=== PATIENT | male | born 1975 | race Caucasian/White ===

== ENCOUNTER 2017-03-06 04:49 | Emergency (ER) | payer OTHER ==
[~2017-03-06] VITALS: Ht 177.8 cm; Wt 102.3 kg
[2017-03-06 04:50] VITALS: BP 141/74
[2017-03-06] MEDS ORDERED: POTA99TA PO (05:11)
[2017-03-06] MEDS ORDERED: MAGN1TAB25 PO (05:11)
[2017-03-06] MEDS ORDERED: FISH100049 PO (05:11)
[2017-03-06] MEDS ORDERED: ONDANSETRON 4 MG ORAL DISINTEGRATING TAB (S0181) PO ONE (08:30)
[2017-03-06] MEDS ORDERED: ONDA8TAB8 PO (09:36)
== END 2017-03-06 09:44 | disposition home or self-care (01) ==
LOC: M ED 04:49
DX: K52.9 Noninfective gastroenteritis and colitis, unspecified (principal); S16.1XXA Strain of muscle, fascia and tendon at neck level, initial encounter; Z72.0 Tobacco use; X58.XXXA Exposure to other specified factors, initial encounter; Y92.89 Other specified places as the place of occurrence of the external cause; Y93.89 Activity, other specified; Y99.9 Unspecified external cause status

== ENCOUNTER 2018-12-09 10:43 | Emergency (ER) | payer OTHER ==
[~2018-12-09] VITALS: Ht 177.8 cm; Wt 102.3 kg
[2018-12-09 10:43] VITALS: BP 133/85
[~2018-12-09 10:43] MED LIST: FISH100049 PO; MAGN1TAB26 PO; ONDA8TAB8 PO; POTA99TA PO
[2018-12-09] MEDS ORDERED: methylPREDNISolone INJ 125 MG/2 ML VIAL (J2930) IM ONE (11:30)
[2018-12-09] MEDS ORDERED: PRED20TA PO (11:36)
== END 2018-12-09 11:43 | disposition home or self-care (01) ==
LOC: M ED 10:43
DX: L56.2 Photocontact dermatitis [berloque dermatitis] (principal); I10 Essential (primary) hypertension; F17.210 Nicotine dependence, cigarettes, uncomplicated
CPT/HCPCS: 96372; 99283; J2930

== ENCOUNTER → 2020-11-20 | Outpatient (CLI) | payer OTHER ==
[~2020-11-20] MED LIST changes: +PRED20TA PO
--- NOTE | 2020-11-20 09:40 | REP ---
INDICATION: STRAIN. COMPARISON: None. TECHNIQUE: AP and frog-leg lateral views of the right hip were obtained. FINDINGS: The hip joint is unremarkable. There is no evidence of femoral head dislocation or subluxation. There is no evidence of fracture of the proximal femur. There is a small avulsion fracture of the anterior inferior iliac spine (AIIS). IMPRESSION: 1. Normal right hip. 2. Evidence of remote injury to the attachment of the rectus femoris muscle at the AIIS. <Electronically signed by Jose Francisco Andujar > 11/20/20 [id number]
--- NOTE | 2020-11-20 09:46 | REP ---
INDICATION: STRAIN. COMPARISON: None. TECHNIQUE: AP view of the pelvis was obtained. FINDINGS: The hip joints are normal. The femoral heads are located without evidence of subluxation or dislocation. There are no fractures identified. The SI joints are normal. There is an avulsion fracture of the right anterior inferior iliac spine (AIIS). There are no soft tissue abnormalities. IMPRESSION: 1. Normal hips and SI joints. 2. Evidence of remote injury to the proximal attachment of the right rectus femoris muscle at the right AIIS. <Electronically signed by Jose Francisco Andujar > 11/20/20 [id number]
== END ==
LOC: M WUC 09:13
PROVIDERS: ATTEND Physician Assistant
DX: S76.011A Strain of muscle, fascia and tendon of right hip, initial encounter (principal); X58.XXXA Exposure to other specified factors, initial encounter; Y92.9 Unspecified place or not applicable; Y99.9 Unspecified external cause status; Y93.9 Activity, unspecified

== ENCOUNTER 2021-11-05 15:03 | Emergency (ER) | payer OTHER ==
[~2021-11-05] VITALS: Ht 177.8 cm; Wt 108.5 kg
[2021-11-05 15:03] VITALS: BP 120/74
== END 2021-11-05 20:31 | disposition home or self-care (01) ==
LOC: M ED 15:03
DX: F41.0 Panic disorder [episodic paroxysmal anxiety] (principal); Z79.899 Other long term (current) drug therapy

== ENCOUNTER 2022-08-05 15:19 | Emergency (ER) | payer OTHER ==
[~2022-08-05] VITALS: Ht 177.8 cm; Wt 106.4 kg
[2022-08-05] MEDS ORDERED: HYDR-4570 PO (15:29)
[2022-08-05] MEDS ORDERED: GABA-282 (15:29)
[2022-08-05] MEDS ORDERED: VENL25TA28 PO (15:29)
[2022-08-05] MEDS ORDERED: IBUP-1022 PO (17:54)
[2022-08-05] MEDS ORDERED: IBUPROFEN 600MG TAB PO ONE (17:55)
[2022-08-05 18:01] VITALS: BP 133/84
== END 2022-08-05 18:05 | disposition home or self-care (01) ==
LOC: M ED 15:19
DX: S63.91XA Sprain of unspecified part of right wrist and hand, initial encounter (principal); Y93.89 Activity, other specified; Y99.0 Civilian activity done for income or pay

== ENCOUNTER → 2022-09-13 | Outpatient (CLI) | payer OTHER ==
[~2022-09-13] MED LIST changes: +GABA-282; +HYDR-4570 PO; +IBUP-1022 PO; +VENL25TA28 PO
[2022-09-13 14:41] LABS: HEMOGLOBIN A1c 5.8 % (4.0-6.0)
[2022-09-13 14:43] LABS: BASO # 0.1 10^3/uL (0.0-0.2); BASO % 0.9 % (0.0-1.0); EOS # 0.2 10^3/uL (0.0-0.5); EOS % 2.3 % (0.0-3.0); HEMATOCRIT 29.3 % (42.0-52.0); HEMOGLOBIN 8.9 g/dl (13.5-17.5); LYMPH # 1.8 10^3/uL (1.5-5.0); LYMPH % 21.9 % (24.0-44.0); MEAN CORPUSCULAR HEMOGLOBIN 23.8 pg (27.0-33.0); MEAN CORPUSCULAR HGB CONC 30.4 g/dl (32.0-36.5); MEAN CORPUSCULAR VOLUME 78.3 fl (80.0-96.0); MONO # 0.8 10^3/uL (0.0-0.8); MONO % 10.1 % (2.0-8.0); NEUTROPHILS # 5.3 10^3/uL (1.5-8.5); NEUTROPHILS % 64.6 % (36.0-66.0); PLATELET COUNT, AUTOMATED 399 10^3/uL (150-450); RED BLOOD COUNT 3.74 10^6/uL (4.30-6.10); WHITE BLOOD COUNT 8.1 10^3/uL (4.0-10.0)
[2022-09-13 14:55] LABS: THYROID STIMULATING HORMONE 2.596 uIU/ML (0.55-4.78)
[2022-09-13 14:57] LABS: ALBUMIN 3.4 G/DL (3.2-5.2); ALKALINE PHOSPHATASE 80 U/L (46-116); ALT/SGPT 22 U/L (7.0-40); AST/SGOT 22 U/L (<34); BILIRUBIN,TOTAL 0.3 MG/DL (0.3-1.2); BLOOD UREA NITROGEN 17 MG/DL (9-23); CALCIUM LEVEL 8.4 MG/DL (8.5-10.1); CARBON DIOXIDE LEVEL 27 MMOL/L (20-31); CHLORIDE LEVEL 105 MMOL/L (98-107); CHOLESTEROL LEVEL 175 MG/DL (<200); CHOLESTEROL RISK RATIO 5.62 (<5); CREATININE FOR GFR 1.19 MG/DL (0.70-1.30); GLOMERULAR FILTRATION RATE > 60.0 (>60); GLUCOSE, FASTING 88 MG/DL (60-100); HDL CHOLESTEROL 31.1 MG/DL (>40); LDL CHOLESTEROL 121.9 MG/DL (<100); NON-HDL-C 143.9 MG/DL; POTASSIUM SERUM 4.5 MMOL/L (3.5-5.1); SODIUM LEVEL 141 MMOL/L (136-145); TOTAL PROTEIN 6.2 G/DL (5.7-8.2); TRIGLYCERIDES LEVEL 110 MG/DL (<150)
== END ==
LOC: M PLALAB 09:41
PROVIDERS: ATTEND Nurse Practitioner Family
DX: R53.83 Other fatigue (principal); Z13.220 Encounter for screening for lipoid disorders; Z13.1 Encounter for screening for diabetes mellitus; K64.9 Unspecified hemorrhoids; K59.09 Other constipation; F41.9 Anxiety disorder, unspecified; Z76.89 Persons encountering health services in other specified circumstances
CPT/HCPCS: 36415; 80053; 80061; 83036; 84439; 84443; 85025; G0463

== ENCOUNTER → 2022-09-15 | Outpatient (REF) | payer OTHER | LOC: M LAB REF 09:52 | PROVIDERS: ATTEND Surgery | DX: R19.7 Diarrhea, unspecified (principal) ==

== ENCOUNTER → 2022-09-28 | Outpatient (CLI) | payer OTHER ==
[2022-09-28 10:33] LABS: BASO # 0.1 10^3/uL (0.0-0.2); BASO % 1.1 % (0.0-1.0); EOS # 0.2 10^3/uL (0.0-0.5); EOS % 1.9 % (0.0-3.0); HEMATOCRIT 29.2 % (42.0-52.0); HEMOGLOBIN 8.9 g/dl (13.5-17.5); LYMPH # 1.6 10^3/uL (1.5-5.0); LYMPH % 20.9 % (24.0-44.0); MEAN CORPUSCULAR HEMOGLOBIN 23.8 pg (27.0-33.0); MEAN CORPUSCULAR HGB CONC 30.5 g/dl (32.0-36.5); MEAN CORPUSCULAR VOLUME 78.1 fl (80.0-96.0); MONO # 0.8 10^3/uL (0.0-0.8); MONO % 10.1 % (2.0-8.0); NEUTROPHILS # 5.1 10^3/uL (1.5-8.5); NEUTROPHILS % 65.5 % (36.0-66.0); PLATELET COUNT, AUTOMATED 449 10^3/uL (150-450); RED BLOOD COUNT 3.74 10^6/uL (4.30-6.10); WHITE BLOOD COUNT 7.8 10^3/uL (4.0-10.0)
[2022-09-28 11:04] LABS: PERCENT SATURATION 5.9 % (19.7-50.0)
[2022-09-28 11:08] LABS: FERRITIN 41.1 NG/ML (10.5-307.3)
== END ==
LOC: M PLALAB 07:07
PROVIDERS: ATTEND Nurse Practitioner Family
DX: D64.9 Anemia, unspecified (principal)

== ENCOUNTER → 2022-10-04 | Outpatient (CLI) | payer OTHER ==
[~2022-10-04] MED LIST changes: +GASTROGRAFIN SOLUTION 30ML As Ordered ONE; +ISOVUE-370 76% 100ML VIAL As Ordered ONE
== END ==
LOC: M RAD 13:10
PROVIDERS: ATTEND Surgery
DX: R19.7 Diarrhea, unspecified (principal); R10.84 Generalized abdominal pain; R19.4 Change in bowel habit; K57.90 Diverticulosis of intestine, part unspecified, without perforation or abscess without bleeding; R93.3 Abnormal findings on diagnostic imaging of other parts of digestive tract
CPT/HCPCS: 74178; Q9963; Q9967

== ENCOUNTER → 2022-10-11 | Outpatient (CLI) | payer OTHER ==
[~2022-10-11] MED LIST changes: -GABA-282; +GABA-282 PO; -GASTROGRAFIN SOLUTION 30ML As Ordered ONE; +IRON1TAB2 PO; -ISOVUE-370 76% 100ML VIAL As Ordered ONE; +VENL37.598 PO; +VITA100T14 PO
[2022-10-11 16:52] LABS: CA19-9 TUMOR MARKER,CARBOHYDRA 1043.7 U/ML (<35.0)
== END ==
LOC: M LAB 13:56
PROVIDERS: ATTEND Surgery
DX: C18.9 Malignant neoplasm of colon, unspecified (principal)

== ENCOUNTER 2022-10-13 12:42 | Day surgery (SDC) | payer OTHER ==
[~2022-10-13] VITALS: Ht 177.8 cm; Wt 103.5 kg
[~2022-10-13 12:42] MED LIST changes: +NS 1,000 ML IV ONE
[2022-10-13 13:24] VITALS: TEMP 97.6
[2022-10-13] MEDS ORDERED: propofoL 200 MG/20 ML VIAL As Ordered ONE ×2 (14:31→14:40)
[2022-10-13] MEDS ORDERED: fentaNYL 100 MCG/2 ML INJECTION As Ordered ONE (14:32)
[2022-10-13 15:20] VITALS: BP 136/78; O2SAT 99
== END 2022-10-13 15:27 | disposition home or self-care (01) ==
LOC: M OPP 12:42
PROVIDERS: ATTEND Surgery
DX: K62.5 Hemorrhage of anus and rectum (principal); C20 Malignant neoplasm of rectum; K56.690 Other partial intestinal obstruction; R93.3 Abnormal findings on diagnostic imaging of other parts of digestive tract; R10.84 Generalized abdominal pain; Z87.891 Personal history of nicotine dependence; Z79.1 Long term (current) use of non-steroidal anti-inflammatories (NSAID); Z79.891 Long term (current) use of opiate analgesic; Z79.899 Other long term (current) drug therapy
CPT/HCPCS: 43235; 45380; 88305; J3010

== ENCOUNTER → 2022-11-09 | Outpatient (CLI) | payer OTHER ==
[~2022-11-09] MED LIST changes: +ACET650T15 PO; +ISOVUE-370 76% 100ML VIAL ONE; +MULT1TAB16 PO; -NS 1,000 ML IV ONE; +OXYC1CAP PO; +SENN-186 PO; +TRAM50TA2
== END ==
LOC: M PLAIMG 08:34
PROVIDERS: ATTEND Internal Medicine Medical Oncology
DX: C78.01 Secondary malignant neoplasm of right lung (principal); C78.02 Secondary malignant neoplasm of left lung; K76.89 Other specified diseases of liver
CPT/HCPCS: 71260; Q9967

== ENCOUNTER → 2022-11-15 | Outpatient (CLI) | payer OTHER ==
[~2022-11-15] MED LIST changes: -ISOVUE-370 76% 100ML VIAL ONE; +LIDO30CR18 TOP; +OXYC-517 PO
== END ==
LOC: M PAL 07:58
PROVIDERS: ATTEND Nurse Practitioner Family
DX: G89.3 Neoplasm related pain (acute) (chronic) (principal); Z51.5 Encounter for palliative care; Z79.891 Long term (current) use of opiate analgesic; Z79.1 Long term (current) use of non-steroidal anti-inflammatories (NSAID); C18.9 Malignant neoplasm of colon, unspecified; C78.7 Secondary malignant neoplasm of liver and intrahepatic bile duct; C78.00 Secondary malignant neoplasm of unspecified lung; C77.1 Secondary and unspecified malignant neoplasm of intrathoracic lymph nodes; Z87.891 Personal history of nicotine dependence

== ENCOUNTER → 2022-11-22 | Outpatient (CLI) | payer OTHER ==
[~2022-11-22] VITALS: Ht 177.8 cm; Wt 102.9 kg
[~2022-11-22] MED LIST changes: +COLA100C5 PO; +MIRA3350 PO
[2022-11-22 10:14] VITALS: BP 97/65; TEMP 97; O2SAT 98
== END ==
LOC: M PAL 09:54
PROVIDERS: ATTEND Nurse Practitioner Adult Health
DX: C18.9 Malignant neoplasm of colon, unspecified (principal); C78.7 Secondary malignant neoplasm of liver and intrahepatic bile duct; C78.00 Secondary malignant neoplasm of unspecified lung; C77.1 Secondary and unspecified malignant neoplasm of intrathoracic lymph nodes; Z79.891 Long term (current) use of opiate analgesic; Z51.5 Encounter for palliative care; G89.3 Neoplasm related pain (acute) (chronic); Z79.1 Long term (current) use of non-steroidal anti-inflammatories (NSAID); G47.01 Insomnia due to medical condition; Z87.891 Personal history of nicotine dependence; F41.9 Anxiety disorder, unspecified; Z79.899 Other long term (current) drug therapy

== ENCOUNTER → 2022-12-08 | Outpatient (CLI) | payer OTHER | LOC: M ONCR 09:40 | PROVIDERS: ATTEND General Practice | DX: C20 Malignant neoplasm of rectum (principal); R91.8 Other nonspecific abnormal finding of lung field; R16.0 Hepatomegaly, not elsewhere classified; Z71.2 Person consulting for explanation of examination or test findings; Z79.891 Long term (current) use of opiate analgesic; Z79.899 Other long term (current) drug therapy; Z80.0 Family history of malignant neoplasm of digestive organs; Z80.1 Family history of malignant neoplasm of trachea, bronchus and lung; Z87.891 Personal history of nicotine dependence ==

== ENCOUNTER 2022-12-12 09:55 | Emergency (ER) | payer OTHER ==
[~2022-12-12] VITALS: Ht 177.8 cm; Wt 105.3 kg
[2022-12-12] MEDS ORDERED: NS 500 ML IV ONE ×2 (10:05→13:40)
[2022-12-12] MEDS ORDERED: ISOVUE-370 76% 100ML VIAL As Ordered ONE (10:58)
[2022-12-12] MEDS ORDERED: ONDANSETRON 4MG 2ML VIAL IV ONE (11:05)
[2022-12-12 11:14] LABS: BASO # 0.1 10^3/uL (0.0-0.2); BASO % 0.8 % (0.0-1.0); EOS # 0.1 10^3/uL (0.0-0.5); EOS % 0.5 % (0.0-3.0); HEMOGLOBIN 7.7 g/dl (13.5-17.5); LYMPH # 1.5 10^3/uL (1.5-5.0); LYMPH % 12.1 % (24.0-44.0); MEAN CORPUSCULAR HEMOGLOBIN 22.2 pg (27.0-33.0); MEAN CORPUSCULAR HGB CONC 30.8 g/dl (32.0-36.5); MONO # 1.1 10^3/uL (0.0-0.8); MONO % 9.2 % (2.0-8.0); NEUTROPHILS # 9.5 10^3/uL (1.5-8.5); NEUTROPHILS % 76.7 % (36.0-66.0); PLATELET COUNT, AUTOMATED 446 10^3/uL (150-450); RED BLOOD COUNT 3.47 10^6/uL (4.30-6.10); WHITE BLOOD COUNT 12.4 10^3/uL (4.0-10.0)
[2022-12-12] MEDS: MORPHINE 4 MG/ML 1ML VIAL IV PRN ×2 (11:18→12:13)
[2022-12-12 11:27] LABS: INR 1.16; PROTHROMBIN TIME 14.5 SECONDS (12.5-14.5)
[2022-12-12 11:28] LABS: PARTIAL THROMBOPLASTIN TIME 28.9 SECONDS (24.8-34.2)
[2022-12-12 11:36] LABS: LIPASE 24 U/L (12-53)
[2022-12-12 11:37] LABS: AMYLASE 27 U/L (30-118)
[2022-12-12 11:38] LABS: ALBUMIN 2.8 G/DL (3.2-5.2); ALKALINE PHOSPHATASE 416 U/L (46-116); ALT/SGPT 45 U/L (7.0-40); AST/SGOT 84 U/L (<34); BILIRUBIN,DIRECT 0.3 MG/DL (<0.4); BILIRUBIN,TOTAL 0.8 MG/DL (0.3-1.2); CK-MB VALUE MASS < 1.0 NG/ML (<3.6); CPK CREATINE PHOSPHOKINASE 145 U/L (46-171); MB/CK RELATIVE INDEX 0.68 (< OR =4); TOTAL PROTEIN 6.7 G/DL (5.7-8.2)
[2022-12-12 11:46] LABS: RSV AMPLIFICATION NEGATIVE (NEGATIVE)
[2022-12-12 13:07] VITALS: BP 127/67; TEMP 99.5; TEMP 99.9; O2SAT 23
[2022-12-12 13:23] VITALS: BP 127/69; TEMP 100; O2SAT 96
[2022-12-12] MEDS ORDERED: ACETAMINOPHEN TAB 650MG DOSE (2X325MG) PO ONE (13:25)
[2022-12-12 14:08] VITALS: BP 123/75; TEMP 99.1; O2SAT 95
[2022-12-12 15:14] VITALS: BP 124/69; TEMP 98.7; O2SAT 97
== END 2022-12-12 15:55 | disposition home or self-care (01) ==
LOC: M ED 09:55
DX: R10.11 Right upper quadrant pain (principal); R11.10 Vomiting, unspecified; Z85.038 Personal history of other malignant neoplasm of large intestine; F41.9 Anxiety disorder, unspecified; F32.A Depression, unspecified; Z79.899 Other long term (current) drug therapy
CPT/HCPCS: 36430; 71045; 71275; 74177; 80047; 80076; 81001; 82150; 82550; 82553; 83605; 83690; 84484; 85025; 85610; 85730; 86850; 86900; 86901; 86920; 87040; 87631; 93005; 93041; 96361; 96374; 96375; 96376; 99285; J2405; P9016; Q9967

== ENCOUNTER 2022-12-13 10:13 | Outpatient (RCR) | payer OTHER ==
[2022-12-15] MEDS ORDERED: ONDA-84 PO (08:41)
[2022-12-20] MEDS ORDERED: PROC10TA5 PO (13:10)
== END 2022-12-15 ==
LOC: M ONCR 10:13
PROVIDERS: ATTEND General Practice
DX: Z51.0 Encounter for antineoplastic radiation therapy (principal); C20 Malignant neoplasm of rectum

== ENCOUNTER → 2022-12-27 | Outpatient (CLI) | payer OTHER ==
[~2022-12-27] VITALS: Ht 177.8 cm; Wt 106.4 kg
[~2022-12-27] MED LIST changes: +DEXA4TA PO; +ONDA-84 PO; +OXYC10TA12 PO; +PROC10TA5 PO
[2022-12-27 08:34] VITALS: BP 129/75; O2SAT 97
== END ==
LOC: M PAL 08:18
PROVIDERS: ATTEND Nurse Practitioner Adult Health
DX: C18.9 Malignant neoplasm of colon, unspecified (principal); C78.7 Secondary malignant neoplasm of liver and intrahepatic bile duct; C78.00 Secondary malignant neoplasm of unspecified lung; C77.1 Secondary and unspecified malignant neoplasm of intrathoracic lymph nodes; G89.3 Neoplasm related pain (acute) (chronic); G47.01 Insomnia due to medical condition; F41.9 Anxiety disorder, unspecified; R61 Generalized hyperhidrosis; Z51.5 Encounter for palliative care; Z79.1 Long term (current) use of non-steroidal anti-inflammatories (NSAID); Z79.891 Long term (current) use of opiate analgesic; Z79.899 Other long term (current) drug therapy; Z87.891 Personal history of nicotine dependence; Z92.3 Personal history of irradiation; Z92.21 Personal history of antineoplastic chemotherapy

== ENCOUNTER → 2022-12-30 | Outpatient (CLI) | payer OTHER ==
[~2022-12-30] MED LIST changes: +LIDOCAINE 1% MDV 20ML VIAL As Ordered ONE; +LOMO2.5T PO
[2022-12-30 12:33] VITALS: TEMP 98.6
[2022-12-30 15:10] VITALS: BP 124/80; O2SAT 100
== END ==
LOC: M IRPRO 12:15
PROVIDERS: ATTEND Specialist
DX: K76.89 Other specified diseases of liver (principal); C22.0 Liver cell carcinoma

== ENCOUNTER → 2023-02-07 | Outpatient (CLI) | payer OTHER ==
[~2023-02-07] VITALS: Ht 182.9 cm; Wt 99.5 kg
[~2023-02-07] MED LIST changes: +BLOOMIS XX; +CRAN400C PO; +EQL50TAB2 PO; -LIDOCAINE 1% MDV 20ML VIAL As Ordered ONE; +VITA100T59 PO
[2023-02-07 09:45] VITALS: BP 151/94; O2SAT 97
== END ==
LOC: M PAL 09:13
PROVIDERS: ATTEND Nurse Practitioner Adult Health
DX: C18.9 Malignant neoplasm of colon, unspecified (principal); C78.7 Secondary malignant neoplasm of liver and intrahepatic bile duct; C78.00 Secondary malignant neoplasm of unspecified lung; C77.1 Secondary and unspecified malignant neoplasm of intrathoracic lymph nodes; G89.3 Neoplasm related pain (acute) (chronic); G47.01 Insomnia due to medical condition; F41.9 Anxiety disorder, unspecified; K59.00 Constipation, unspecified; R61 Generalized hyperhidrosis; Z51.5 Encounter for palliative care; Z79.1 Long term (current) use of non-steroidal anti-inflammatories (NSAID); Z79.891 Long term (current) use of opiate analgesic; Z79.899 Other long term (current) drug therapy; Z87.891 Personal history of nicotine dependence; Z92.21 Personal history of antineoplastic chemotherapy; Z92.3 Personal history of irradiation

== ENCOUNTER 2023-03-01 21:09 | Emergency (ER) | payer OTHER ==
[~2023-03-01] VITALS: Ht 177.8 cm; Wt 99.8 kg
[~2023-03-01 21:09] MED LIST changes: +HYDR-3911; +SIME80TA16 PO; +TELM1TAB33
[2023-03-01] MEDS ORDERED: MORPHINE 4 MG/ML 1ML VIAL IV PRN (22:25)
[2023-03-01] MEDS ORDERED: ONDANSETRON 4MG 2ML VIAL IV ONE (22:25)
[2023-03-01 22:42] LABS: BASO % 0.1 % (0.0-1.0); HEMATOCRIT 34.7 % (42.0-52.0); HEMOGLOBIN 11.4 g/dl (13.5-17.5); LYMPH # 0.3 10^3/uL (1.5-5.0); LYMPH % 4.8 % (24.0-44.0); MEAN CORPUSCULAR HEMOGLOBIN 28.8 pg (27.0-33.0); MEAN CORPUSCULAR HGB CONC 32.9 g/dl (32.0-36.5); MEAN CORPUSCULAR VOLUME 87.6 fl (80.0-96.0); MONO # 0.9 10^3/uL (0.0-0.8); MONO % 12.2 % (2.0-8.0); NEUTROPHILS # 5.9 10^3/uL (1.5-8.5); NEUTROPHILS % 82.8 % (36.0-66.0); PLATELET COUNT, AUTOMATED 197 10^3/uL (150-450); RED BLOOD COUNT 3.96 10^6/uL (4.30-6.10); WHITE BLOOD COUNT 7.1 10^3/uL (4.0-10.0)
[2023-03-01 22:57] LABS: INR 1.06; PARTIAL THROMBOPLASTIN TIME 29.5 SECONDS (24.8-34.2); PROTHROMBIN TIME 13.5 SECONDS (12.5-14.5)
[2023-03-01 23:05] LABS: CK-MB VALUE MASS < 1.0 NG/ML (<3.6); LIPASE 48 U/L (12-53)
[2023-03-01 23:07] LABS: ALBUMIN 2.8 G/DL (3.2-5.2); ALKALINE PHOSPHATASE 229 U/L (46-116); ALT/SGPT 28 U/L (7.0-40); AST/SGOT 25 U/L (<34); BILIRUBIN,DIRECT 0.2 MG/DL (<0.4); BILIRUBIN,TOTAL 0.4 MG/DL (0.3-1.2); BLOOD UREA NITROGEN 12 MG/DL (9-23); CALCIUM LEVEL 8.6 MG/DL (8.5-10.1); CARBON DIOXIDE LEVEL 22 MMOL/L (20-31); CHLORIDE LEVEL 108 MMOL/L (98-107); CPK CREATINE PHOSPHOKINASE 46 U/L (46-171); CREATININE FOR GFR 0.62 MG/DL (0.70-1.30); GLOMERULAR FILTRATION RATE > 60.0 (>60); GLUCOSE, FASTING 144 MG/DL (60-100); MB/CK RELATIVE INDEX 2.17 (< OR =4); POTASSIUM SERUM 4.7 MMOL/L (3.5-5.1); SODIUM LEVEL 138 MMOL/L (136-145); TOTAL PROTEIN 6.4 G/DL (5.7-8.2)
[2023-03-01 23:27] LABS: RSV AMPLIFICATION NEGATIVE (NEGATIVE)
[2023-03-02 00:09] LABS: CK-MB VALUE MASS < 1.0 NG/ML (<3.6)
[2023-03-02 00:11] LABS: CPK CREATINE PHOSPHOKINASE 36 U/L (46-171); MB/CK RELATIVE INDEX 2.77 (< OR =4)
[2023-03-02] MEDS ORDERED: ISOVUE-370 76% 100ML VIAL As Ordered ONE (00:25)
[2023-03-02 01:59] VITALS: BP 138/89; TEMP 97.7; O2SAT 95
[2023-03-02 02:20] LABS: HEMATOCRIT 32.4 % (42.0-52.0); HEMOGLOBIN 10.6 g/dl (13.5-17.5); MEAN CORPUSCULAR HEMOGLOBIN 28.7 pg (27.0-33.0); MEAN CORPUSCULAR HGB CONC 32.7 g/dl (32.0-36.5); MEAN CORPUSCULAR VOLUME 87.8 fl (80.0-96.0); PLATELET COUNT, AUTOMATED 143 10^3/uL (150-450); RED BLOOD COUNT 3.69 10^6/uL (4.30-6.10); WHITE BLOOD COUNT 7.2 10^3/uL (4.0-10.0)
[2023-03-02] MEDS ORDERED: MORP15TA2 PO (13:27)
[2023-03-08] MEDS ORDERED: NAPR-849 PO (09:40)
[2023-03-08] MEDS ORDERED: VENL37.598 PO ×2 (10:19→10:49)
== END 2023-03-02 02:55 | disposition home or self-care (01) ==
LOC: M ED 21:09
DX: K92.2 Gastrointestinal hemorrhage, unspecified (principal); C18.9 Malignant neoplasm of colon, unspecified; F41.1 Generalized anxiety disorder; Z79.899 Other long term (current) drug therapy
CPT/HCPCS: 71275; 74177; 85027; 93005; 96365; 96366; 96375; Q9967

== ENCOUNTER → 2023-03-08 | Outpatient (CLI) | payer OTHER ==
[~2023-03-08] VITALS: Ht 177.8 cm; Wt 99.2 kg
[~2023-03-08] MED LIST changes: +METO5TAB2 PO; +MORP15TA2 PO; +NAPR-849 PO
[2023-03-08 09:34] VITALS: BP 140/87; O2SAT 97
== END ==
LOC: M PAL 09:07
PROVIDERS: ATTEND Nurse Practitioner Adult Health
DX: C18.9 Malignant neoplasm of colon, unspecified (principal); C78.7 Secondary malignant neoplasm of liver and intrahepatic bile duct; C78.00 Secondary malignant neoplasm of unspecified lung; C77.1 Secondary and unspecified malignant neoplasm of intrathoracic lymph nodes; G89.3 Neoplasm related pain (acute) (chronic); G47.01 Insomnia due to medical condition; R61 Generalized hyperhidrosis; Z51.5 Encounter for palliative care; Z79.891 Long term (current) use of opiate analgesic; Z79.899 Other long term (current) drug therapy; Z87.891 Personal history of nicotine dependence; Z92.21 Personal history of antineoplastic chemotherapy; Z92.3 Personal history of irradiation

== ENCOUNTER → 2023-03-29 | Outpatient (CLI) | payer OTHER | LOC: M ONCR 08:11 | PROVIDERS: ATTEND General Practice | DX: C20 Malignant neoplasm of rectum (principal); R10.30 Lower abdominal pain, unspecified; R16.0 Hepatomegaly, not elsewhere classified; Z71.2 Person consulting for explanation of examination or test findings; Z79.899 Other long term (current) drug therapy; Z87.891 Personal history of nicotine dependence; Z92.3 Personal history of irradiation ==

== ENCOUNTER → 2023-04-13 | Outpatient (CLI) | payer OTHER ==
[~2023-04-13] VITALS: Ht 177.8 cm; Wt 99.2 kg
[2023-04-13 09:00] VITALS: BP 149/97; O2SAT 100
== END ==
LOC: M PAL 09:08
PROVIDERS: ATTEND Nurse Practitioner Adult Health
DX: C18.9 Malignant neoplasm of colon, unspecified (principal); C78.7 Secondary malignant neoplasm of liver and intrahepatic bile duct; C78.00 Secondary malignant neoplasm of unspecified lung; C77.1 Secondary and unspecified malignant neoplasm of intrathoracic lymph nodes; G89.3 Neoplasm related pain (acute) (chronic); G47.01 Insomnia due to medical condition; Z51.5 Encounter for palliative care; Z79.891 Long term (current) use of opiate analgesic; Z79.899 Other long term (current) drug therapy; Z87.891 Personal history of nicotine dependence; Z92.21 Personal history of antineoplastic chemotherapy; Z92.3 Personal history of irradiation

== ENCOUNTER → 2023-05-23 | Outpatient (CLI) | payer OTHER ==
[~2023-05-23] VITALS: Ht 177.8 cm; Wt 99.7 kg
[~2023-05-23] MED LIST changes: +B-122500 PO; +CVS1CAP2 PO; +HYDR-3363; +HYDR-3363 PO; -HYDR-3911; +HYDR50TA46; +NOXI1TAB PO; +VENL75CA47 PO
[2023-05-23 08:51] VITALS: BP 129/88; O2SAT 98
== END ==
LOC: M PAL 08:18
PROVIDERS: ATTEND Nurse Practitioner Adult Health
DX: C18.9 Malignant neoplasm of colon, unspecified (principal); C78.7 Secondary malignant neoplasm of liver and intrahepatic bile duct; C78.00 Secondary malignant neoplasm of unspecified lung; C77.1 Secondary and unspecified malignant neoplasm of intrathoracic lymph nodes; F41.8 Other specified anxiety disorders; G89.3 Neoplasm related pain (acute) (chronic); G47.01 Insomnia due to medical condition; Z51.5 Encounter for palliative care; Z79.891 Long term (current) use of opiate analgesic; Z79.899 Other long term (current) drug therapy; Z87.891 Personal history of nicotine dependence; Z92.21 Personal history of antineoplastic chemotherapy; Z92.3 Personal history of irradiation

== ENCOUNTER → 2023-06-21 | Outpatient (CLI) | payer OTHER ==
[~2023-06-21] MED LIST changes: +GASTROGRAFIN SOLUTION 30ML As Ordered ONE; -HYDR50TA46; +HYDR50TA46 PO; +ISOVUE-370 76% 100ML VIAL As Ordered ONE
== END ==
LOC: M RAD 06:59
PROVIDERS: ATTEND General Practice
DX: C20 Malignant neoplasm of rectum (principal); N20.0 Calculus of kidney; K76.89 Other specified diseases of liver
CPT/HCPCS: 71260; 74177; Q9963; Q9967

== ENCOUNTER → 2023-06-28 | Outpatient (CLI) | payer OTHER ==
[~2023-06-28] MED LIST changes: -GASTROGRAFIN SOLUTION 30ML As Ordered ONE; -ISOVUE-370 76% 100ML VIAL As Ordered ONE
== END ==
LOC: M ONCR 09:33
PROVIDERS: ATTEND General Practice
DX: C78.7 Secondary malignant neoplasm of liver and intrahepatic bile duct (principal); C20 Malignant neoplasm of rectum; R91.8 Other nonspecific abnormal finding of lung field; Z71.2 Person consulting for explanation of examination or test findings; Z79.899 Other long term (current) drug therapy; Z87.891 Personal history of nicotine dependence; Z91.018 Allergy to other foods; Z92.21 Personal history of antineoplastic chemotherapy; Z92.3 Personal history of irradiation

== ENCOUNTER → 2023-06-28 | Outpatient (CLI) | payer OTHER ==
[~2023-06-28] VITALS: Ht 180.3 cm; Wt 100.0 kg
[2023-06-28 09:15] VITALS: BP 126/64; O2SAT 100
== END ==
LOC: M PAL 08:08
PROVIDERS: ATTEND Nurse Practitioner Adult Health
DX: G89.3 Neoplasm related pain (acute) (chronic) (principal); M25.551 Pain in right hip; C20 Malignant neoplasm of rectum; C78.7 Secondary malignant neoplasm of liver and intrahepatic bile duct; C78.00 Secondary malignant neoplasm of unspecified lung; C77.1 Secondary and unspecified malignant neoplasm of intrathoracic lymph nodes; F41.8 Other specified anxiety disorders; F32.A Depression, unspecified; E73.9 Lactose intolerance, unspecified; R91.8 Other nonspecific abnormal finding of lung field; Z51.5 Encounter for palliative care; Z71.2 Person consulting for explanation of examination or test findings; Z79.891 Long term (current) use of opiate analgesic; Z79.899 Other long term (current) drug therapy; Z87.891 Personal history of nicotine dependence; Z92.21 Personal history of antineoplastic chemotherapy; Z92.3 Personal history of irradiation; Z91.018 Allergy to other foods
CPT/HCPCS: G0463 ×2

== ENCOUNTER → 2023-07-18 | Outpatient (CLI) | payer OTHER ==
[2023-07-18 14:22] LABS: HEMATOCRIT 33.8 % (42.0-52.0); MEAN CORPUSCULAR HEMOGLOBIN 31.3 pg (27.0-33.0); MEAN CORPUSCULAR HGB CONC 32.5 g/dl (32.0-36.5); PLATELET COUNT, AUTOMATED 109 10^3/uL (150-450); RED BLOOD COUNT 3.52 10^6/uL (4.30-6.10); WHITE BLOOD COUNT 2.6 10^3/uL (4.0-10.0)
[2023-07-18 14:26] LABS: THYROID STIMULATING HORMONE 2.764 uIU/ML (0.55-4.78)
[2023-07-18 14:27] LABS: TOTAL 25(OH) VITAMIN D 31.1 NG/ML (20.0-100.0)
[2023-07-18 14:30] LABS: FREE T4 1.32 NG/DL (0.89-1.76)
[2023-07-18 14:34] LABS: ALBUMIN 2.8 G/DL (3.2-5.2); ALKALINE PHOSPHATASE 319 U/L (46-116); ALT/SGPT 46 U/L (7.0-40); AST/SGOT 46 U/L (<34); BILIRUBIN,TOTAL 0.7 MG/DL (0.3-1.2); BLOOD UREA NITROGEN 12 MG/DL (9-23); CALCIUM LEVEL 8.7 MG/DL (8.5-10.1); CARBON DIOXIDE LEVEL 29 MMOL/L (20-31); CHLORIDE LEVEL 106 MMOL/L (98-107); CHOLESTEROL LEVEL 154 MG/DL (<200); CHOLESTEROL RISK RATIO 2.26 (<5); GLOMERULAR FILTRATION RATE > 60.0 (>60); GLUCOSE, FASTING 114 MG/DL (60-100); HEMOGLOBIN A1c 5.1 % (4.0-6.0); LDL CHOLESTEROL 71.8 MG/DL (<100); POTASSIUM SERUM 4.4 MMOL/L (3.5-5.1); SODIUM LEVEL 142 MMOL/L (136-145); TOTAL PROTEIN 5.9 G/DL (5.7-8.2); TRIGLYCERIDES LEVEL 71 MG/DL (<150)
[2023-07-18 15:35] LABS: ATYPICAL LYMPH 3 % (0-5); BASOPHILS 2 % (0-1); EOSINOPHILS 5 % (0-3); LYMPHOCYTES 11 % (16-44); MONOCYTES 5 % (0-5); NEUTROPHILS 74 % (28-66)
[2023-07-18 15:36] LABS: ANISOCYTOSIS 1+; OVALOCYTES 1+
[2023-07-18 16:42] LABS: PLATELET ESTIMATE DECREASED (NORMAL)
== END ==
LOC: M PLALAB 09:42
PROVIDERS: ATTEND Nurse Practitioner Family
DX: E78.2 Mixed hyperlipidemia (principal); R73.03 Prediabetes; E55.9 Vitamin D deficiency, unspecified; I10 Essential (primary) hypertension

== ENCOUNTER → 2023-08-08 | Outpatient (CLI) | payer OTHER ==
[~2023-08-08] MED LIST changes: -OXYC1CAP PO; +OXYC1CAP2 PO
== END ==
LOC: M ONCR 10:07
PROVIDERS: ATTEND General Practice
DX: C20 Malignant neoplasm of rectum (principal); C78.7 Secondary malignant neoplasm of liver and intrahepatic bile duct; C78.00 Secondary malignant neoplasm of unspecified lung; Z71.2 Person consulting for explanation of examination or test findings; Z79.899 Other long term (current) drug therapy; Z87.891 Personal history of nicotine dependence; Z91.018 Allergy to other foods; Z91.011 Allergy to milk products; Z92.21 Personal history of antineoplastic chemotherapy; Z92.3 Personal history of irradiation

== ENCOUNTER → 2023-08-09 | Outpatient (CLI) | payer OTHER ==
[~2023-08-09] VITALS: Ht 177.8 cm; Wt 99.1 kg
[2023-08-09 08:45] VITALS: BP 128/81; O2SAT 100
== END ==
LOC: M PAL 08:35
PROVIDERS: ATTEND Nurse Practitioner Adult Health
DX: G89.3 Neoplasm related pain (acute) (chronic) (principal); G56.93 Unspecified mononeuropathy of bilateral upper limbs; C20 Malignant neoplasm of rectum; C78.7 Secondary malignant neoplasm of liver and intrahepatic bile duct; C78.00 Secondary malignant neoplasm of unspecified lung; C77.1 Secondary and unspecified malignant neoplasm of intrathoracic lymph nodes; F41.8 Other specified anxiety disorders; F32.A Depression, unspecified; E73.9 Lactose intolerance, unspecified; R91.8 Other nonspecific abnormal finding of lung field; Z51.5 Encounter for palliative care; Z71.2 Person consulting for explanation of examination or test findings; Z79.891 Long term (current) use of opiate analgesic; Z79.899 Other long term (current) drug therapy; Z87.891 Personal history of nicotine dependence; Z92.21 Personal history of antineoplastic chemotherapy; Z92.3 Personal history of irradiation; Z91.018 Allergy to other foods

== ENCOUNTER 2023-08-17 11:30 | Day surgery (SDC) | payer OTHER ==
[~2023-08-17] VITALS: Ht 177.8 cm; Wt 94.8 kg
[2023-08-17] MEDS ORDERED: LIDOCAINE 2% 100MG/5ML SDV (FOR ANES.) As Ordered ONE (12:03)
[2023-08-17] MEDS ORDERED: propofoL 200 MG/20 ML VIAL As Ordered ONE (12:03)
[2023-08-17] MEDS: NS 1,000 ML IV ONE (12:09)
[2023-08-17] MEDS ORDERED: fentaNYL 100 MCG/2 ML INJECTION As Ordered ONE (12:16)
[2023-08-17 14:19] VITALS: BP 134/90; O2SAT 100
[2023-08-21] MEDS ORDERED: NEUR600T PO (10:45)
== END 2023-08-17 14:19 | disposition home or self-care (01) ==
LOC: M OPP 11:30
PROVIDERS: ATTEND Surgery
DX: C20 Malignant neoplasm of rectum (principal); K52.9 Noninfective gastroenteritis and colitis, unspecified; K62.7 Radiation proctitis; K56.699 Other intestinal obstruction unspecified as to partial versus complete obstruction; R10.2 Pelvic and perineal pain; R10.84 Generalized abdominal pain; K29.70 Gastritis, unspecified, without bleeding; K31.89 Other diseases of stomach and duodenum; Z79.899 Other long term (current) drug therapy; Z92.21 Personal history of antineoplastic chemotherapy; Z92.3 Personal history of irradiation; Z87.891 Personal history of nicotine dependence; Z91.018 Allergy to other foods
CPT/HCPCS: 43235; 45380; 88305; J3010

== ENCOUNTER 2023-09-15 08:38 | Inpatient (IN) | payer OTHER ==
[2023-09-15] VITALS (7 sets, daily range): BP systolic 118–126; BP diastolic 74–79; TEMP 97–97.9; O2SAT 94–98
[~2023-09-15] VITALS: Ht 177.8 cm; Wt 97.5 kg
[~2023-09-15 08:38] MED LIST changes: -CRAN400C PO; +CRANBERRY400 MG PO; +GABA600T4 PO; +NEUR600T PO; +ONDA-284 PO; -ONDA8TAB8 PO; +THERTAB52 PO; +VENL25TA20 PO; -VENL25TA28 PO
[2023-09-15] MEDS ORDERED: MIRA3350 (09:28)
[2023-09-15] MEDS ORDERED: METR-265 PO (09:28)
[2023-09-15] MEDS ORDERED: NEOM500T PO (09:28)
[2023-09-15] MEDS ORDERED: LIDO1PAD TOP (09:30)
[2023-09-15] MEDS ORDERED: LIDO30CR18 TOP (09:30)
[2023-09-15] MEDS: LR 1,000 ML IV SCH ×2 (09:54→14:34)
[2023-09-15] MEDS ORDERED: propofoL 200 MG/20 ML VIAL As Ordered ONE (10:59)
[2023-09-15] MEDS ORDERED: ONDANSETRON 4MG 2ML VIAL As Ordered ONE (10:59)
[2023-09-15] MEDS ORDERED: ROCURONIUM BROMIDE 50MG/5ML VIAL As Ordered ONE (10:59)
[2023-09-15] MEDS ORDERED: fentaNYL 250 MCG/5 ML INJECTION As Ordered ONE (10:59)
[2023-09-15] MEDS ORDERED: MIDAZOLAM INJ 2MG/2ML VIAL As Ordered ONE (10:59)
[2023-09-15] MEDS ORDERED: LIDOCAINE 2% 100MG/5ML SDV (FOR ANES.) As Ordered ONE (10:59)
[2023-09-15] MEDS ORDERED: dexmedeTOMIDine (4MCG/ML)200MCG/50ML BTL (PRECEDEX) As Ordered ONE (11:00)
[2023-09-15] MEDS ORDERED: MORP15TA2 PO (11:12)
[2023-09-15] MEDS ORDERED: VENL75CA47 PO (11:18)
[2023-09-15] MEDS ORDERED: METO5TAB2 PO (11:18)
[2023-09-15] MEDS ORDERED: HYDR-3363 PO (11:18)
[2023-09-15] MEDS: metroNIDAZOLE 500 MG in IV 1 EA IV ONE (11:20)
[2023-09-15] MEDS ORDERED: HOME MED LIST COMPLETE! XX SCH (11:25)
[2023-09-15] MEDS: ceFAZolin SOD 2 GM in IV 1 EA IV ONE (11:30)
[2023-09-15] MEDS ORDERED: LACRILUBE (AKWA TEARS) OPHTH OINT 3.5GM As Ordered ONE (11:33)
[2023-09-15] MEDS ORDERED: ACETAMINOPHEN 1000MG 100ML IV BAG As Ordered ONE (11:54)
[2023-09-15] MEDS ORDERED: HYDROmorphone HCL 2MG/ML 1ML VIAL As Ordered ONE (12:18)
[2023-09-15] MEDS ORDERED: LABETALOL 100MG/20ML VIAL As Ordered ONE (12:41)
[2023-09-15] MEDS ORDERED: ePHEDrine SULFATE 25 MG/5 ML(5MG/ML) SYRINGE As Ordered ONE (13:28)
[2023-09-15] MEDS ORDERED: SUGAMMADEX SODIUM 500 MG/5 ML VIAL (BRIDION) As Ordered ONE (13:39)
[2023-09-15] MEDS ORDERED: fentaNYL 100 MCG/2 ML INJECTION IV PRN (13:50)
[2023-09-15] MEDS ORDERED: oxyCODONE 5MG TAB PO PRN (13:50)
[2023-09-15] MEDS ORDERED: ONDANSETRON 4MG 2ML VIAL IV PRN ×2 (13:50→13:55)
[2023-09-15] MEDS ORDERED: HYDROMORPHONE HCL 0.5 MG/ 0.5 ML SYRINGE IV PRN (13:50)
[2023-09-15] MEDS ORDERED: IPRATROPIUM 0.5MG/ALBUTEROL 2.5MG INH SOL UD 3ML (DUONEB) NEB PRN ×2 (13:55→21:00)
[2023-09-15] MEDS ORDERED: PROMETHAZINE 25MG/ML 1ML VIAL IV PRN (13:55)
[2023-09-15] MEDS ORDERED: MORPHINE 4 MG/ML 1ML VIAL IV PRN (13:55)
[2023-09-15] MEDS: IPRATROPIUM 0.5MG/ALBUTEROL 2.5MG INH SOL UD 3ML (DUONEB) NEB SCH (14:00)
[2023-09-15] MEDS ORDERED: KETOROLAC 60MG 2ML VIAL As Ordered ONE (14:12)
[2023-09-15] MEDS: KETOROLAC 30 MG/ML 1ML VIAL IV SCH (14:25)
[2023-09-15 14:30] LABS: HEMATOCRIT 28.4 % (42.0-52.0); HEMOGLOBIN 9.3 g/dl (13.5-17.5); MEAN CORPUSCULAR HEMOGLOBIN 32.1 pg (27.0-33.0); MEAN CORPUSCULAR HGB CONC 32.7 g/dl (32.0-36.5); MEAN CORPUSCULAR VOLUME 97.9 fl (80.0-96.0); WHITE BLOOD COUNT 14.7 10^3/uL (4.0-10.0)
[2023-09-15] MEDS: NS 1,000 ML IV SCH (14:34)
[2023-09-15] MEDS: PHYTONADIONE INJection 10 MG in NS 50 ML IV ONE (14:47)
[2023-09-15] MEDS: OCTREOTIDE ACETATE 100MCG/ML VIAL **IV ADMINISTRATION ONLY IV SCH (14:47)
[2023-09-15 14:48] LABS: INR 1.25; PARTIAL THROMBOPLASTIN TIME 37.5 SECONDS (24.8-34.2); PROTHROMBIN TIME 15.3 SECONDS (12.5-14.5)
[2023-09-15 14:52] LABS: PLATELET COUNT, AUTOMATED 59 10^3/uL (150-450)
[2023-09-15 15:02] LABS: ALBUMIN 2.3 G/DL (3.2-5.2); ALKALINE PHOSPHATASE 355 U/L (46-116); ALT/SGPT 34 U/L (7.0-40); AST/SGOT 74 U/L (<34); BILIRUBIN,TOTAL 0.7 MG/DL (0.3-1.2); BLOOD UREA NITROGEN 11 MG/DL (9-23); CARBON DIOXIDE LEVEL 24 MMOL/L (20-31); CHLORIDE LEVEL 108 MMOL/L (98-107); CREATININE FOR GFR 0.75 MG/DL (0.70-1.30); GLOMERULAR FILTRATION RATE > 60.0 (>60); GLUCOSE, FASTING 155 MG/DL (60-100); POTASSIUM SERUM 4.6 MMOL/L (3.5-5.1); SODIUM LEVEL 138 MMOL/L (136-145); TOTAL PROTEIN 5.1 G/DL (5.7-8.2)
[2023-09-15 15:37] LABS: LYMPHOCYTES 2 % (16-44); MONOCYTES 1 % (0-5); NEUTROPHILS 92 % (28-66)
[2023-09-15 15:38] LABS: ANISOCYTOSIS 1+
[2023-09-15 15:39] LABS: PLATELET ESTIMATE DECREASED (NORMAL)
[2023-09-15] MEDS: GABAPENTIN 300 MG CAP PO SCH (17:32)
[2023-09-15] MEDS: PANTOPRAZOLE 40MG VIAL IV SCH (20:42)
[2023-09-15] MEDS: MORPHINE 2 MG/ML 1ML VIAL IV PRN (21:03)
[2023-09-16 00:30] VITALS: BP 127/78; TEMP 98.4; O2SAT 91
[2023-09-16 04:30] VITALS: BP 128/78; TEMP 97.7; O2SAT 97
[2023-09-16 05:59] LABS: HEMATOCRIT 26.8 % (42.0-52.0); HEMOGLOBIN 8.6 g/dl (13.5-17.5); MEAN CORPUSCULAR HEMOGLOBIN 31.7 pg (27.0-33.0); MEAN CORPUSCULAR HGB CONC 32.1 g/dl (32.0-36.5); MEAN CORPUSCULAR VOLUME 98.9 fl (80.0-96.0); RED BLOOD COUNT 2.71 10^6/uL (4.30-6.10); WHITE BLOOD COUNT 15.5 10^3/uL (4.0-10.0)
[2023-09-16 06:00] LABS: PLATELET COUNT, AUTOMATED 89 10^3/uL (150-450)
[2023-09-16 06:27] LABS: ALBUMIN 2.2 G/DL (3.2-5.2); ALKALINE PHOSPHATASE 298 U/L (46-116); ALT/SGPT 17 U/L (7.0-40); AST/SGOT 51 U/L (<34); BILIRUBIN,TOTAL 0.7 MG/DL (0.3-1.2); BLOOD UREA NITROGEN 14 MG/DL (9-23); CALCIUM LEVEL 8.3 MG/DL (8.5-10.1); CARBON DIOXIDE LEVEL 26 MMOL/L (20-31); CHLORIDE LEVEL 107 MMOL/L (98-107); CREATININE FOR GFR 0.86 MG/DL (0.70-1.30); GLOMERULAR FILTRATION RATE > 60.0 (>60); GLUCOSE, FASTING 131 MG/DL (60-100); POTASSIUM SERUM 4.7 MMOL/L (3.5-5.1); SODIUM LEVEL 138 MMOL/L (136-145); TOTAL PROTEIN 4.8 G/DL (5.7-8.2)
[2023-09-16] MEDS: MORPHINE 2 MG/ML 1ML VIAL IV PRN (07:40)
[2023-09-16] MEDS: LIDOCAINE 5% (LIDODERM) PATCH TOP SCH (08:22)
[2023-09-16] MEDS: VENLAFAXINE **XR** 75MG CAPSULE PO SCH (08:22)
[2023-09-16 08:30] VITALS: BP 124/74; TEMP 98.4; O2SAT 96
[2023-09-16 12:30] VITALS: BP 135/90; TEMP 98.2; O2SAT 98
[2023-09-16 16:30] VITALS: BP 134/87; TEMP 98.4; O2SAT 99
[2023-09-16 20:10] VITALS: BP 123/78; TEMP 97.9; O2SAT 100
[2023-09-16] MEDS: RAMELTEON 8 MG TAB (ROZEREM) PO PRN (23:16)
[2023-09-16] MEDS: diphenhydrAMINE CREAM 30GM TOP PRN (23:16)
[2023-09-17] MEDS: ACETAMINOPHEN *IV* 1,000 MG in IV 1 EA IV ONE (02:29)
[2023-09-17 04:40] VITALS: BP 124/77; TEMP 97.7; O2SAT 97
[2023-09-17] MEDS: oxyCODONE 5MG TAB PO PRN (05:41)
[2023-09-17 06:30] LABS: HEMATOCRIT 26.7 % (42.0-52.0); HEMOGLOBIN 8.5 g/dl (13.5-17.5); MEAN CORPUSCULAR HGB CONC 31.8 g/dl (32.0-36.5); MEAN CORPUSCULAR VOLUME 100.4 fl (80.0-96.0); PLATELET COUNT, AUTOMATED 104 10^3/uL (150-450); RED BLOOD COUNT 2.66 10^6/uL (4.30-6.10); WHITE BLOOD COUNT 9.7 10^3/uL (4.0-10.0)
[2023-09-17 06:57] LABS: ALBUMIN 2.2 G/DL (3.2-5.2); ALKALINE PHOSPHATASE 293 U/L (46-116); ALT/SGPT 27 U/L (7.0-40); AST/SGOT 49 U/L (<34); BILIRUBIN,TOTAL 0.8 MG/DL (0.3-1.2); BLOOD UREA NITROGEN 13 MG/DL (9-23); CALCIUM LEVEL 8.1 MG/DL (8.5-10.1); CARBON DIOXIDE LEVEL 26 MMOL/L (20-31); CHLORIDE LEVEL 109 MMOL/L (98-107); CREATININE FOR GFR 0.87 MG/DL (0.70-1.30); GLOMERULAR FILTRATION RATE > 60.0 (>60); GLUCOSE, FASTING 112 MG/DL (60-100); POTASSIUM SERUM 4.4 MMOL/L (3.5-5.1); SODIUM LEVEL 139 MMOL/L (136-145); TOTAL PROTEIN 4.8 G/DL (5.7-8.2)
[2023-09-17 14:15] VITALS: BP 129/74; TEMP 97.9; O2SAT 97
[2023-09-17 20:40] VITALS: BP 125/79; TEMP 97.9; O2SAT 98
[2023-09-17] MEDS: MAALOX 30 ML SUSP *UDC PO ONE (21:56)
[2023-09-18 04:00] VITALS: BP 120/77; TEMP 97.5; O2SAT 94
[2023-09-18 06:49] LABS: HEMATOCRIT 28.1 % (42.0-52.0); MEAN CORPUSCULAR HEMOGLOBIN 31.7 pg (27.0-33.0); MEAN CORPUSCULAR VOLUME 98.9 fl (80.0-96.0); PLATELET COUNT, AUTOMATED 113 10^3/uL (150-450); RED BLOOD COUNT 2.84 10^6/uL (4.30-6.10); WHITE BLOOD COUNT 6.3 10^3/uL (4.0-10.0)
[2023-09-18 07:20] LABS: ALBUMIN 2.2 G/DL (3.2-5.2); ALKALINE PHOSPHATASE 374 U/L (46-116); ALT/SGPT 25 U/L (7.0-40); AST/SGOT 51 U/L (<34); BILIRUBIN,TOTAL 0.8 MG/DL (0.3-1.2); BLOOD UREA NITROGEN 13 MG/DL (9-23); CALCIUM LEVEL 8.1 MG/DL (8.5-10.1); CARBON DIOXIDE LEVEL 29 MMOL/L (20-31); CHLORIDE LEVEL 109 MMOL/L (98-107); GLOMERULAR FILTRATION RATE > 60.0 (>60); GLUCOSE, FASTING 111 MG/DL (60-100); POTASSIUM SERUM 4.4 MMOL/L (3.5-5.1); SODIUM LEVEL 141 MMOL/L (136-145); TOTAL PROTEIN 4.9 G/DL (5.7-8.2)
[2023-09-18] MEDS: SPIRONOLACTONE 25 MG TAB PO SCH (09:53)
[2023-09-18] MEDS: FUROSEMIDE 20 MG TAB PO SCH (09:53)
[2023-09-18 12:00] VITALS: BP 118/73; TEMP 97.5; O2SAT 100
[2023-09-18 20:22] VITALS: BP 117/70; TEMP 97.9; O2SAT 96
[2023-09-19 04:00] VITALS: BP 114/69; TEMP 97; O2SAT 99
[2023-09-19 07:10] LABS: HEMATOCRIT 30.5 % (42.0-52.0); HEMOGLOBIN 9.8 g/dl (13.5-17.5); MEAN CORPUSCULAR HEMOGLOBIN 31.6 pg (27.0-33.0); MEAN CORPUSCULAR HGB CONC 32.1 g/dl (32.0-36.5); MEAN CORPUSCULAR VOLUME 98.4 fl (80.0-96.0); PLATELET COUNT, AUTOMATED 157 10^3/uL (150-450); WHITE BLOOD COUNT 8.6 10^3/uL (4.0-10.0)
[2023-09-19 07:32] LABS: ALBUMIN 2.4 G/DL (3.2-5.2); ALKALINE PHOSPHATASE 474 U/L (46-116); ALT/SGPT 31 U/L (7.0-40); AST/SGOT 59 U/L (<34); BILIRUBIN,TOTAL 0.8 MG/DL (0.3-1.2); BLOOD UREA NITROGEN 13 MG/DL (9-23); CALCIUM LEVEL 8.4 MG/DL (8.5-10.1); CARBON DIOXIDE LEVEL 30 MMOL/L (20-31); CHLORIDE LEVEL 105 MMOL/L (98-107); CREATININE FOR GFR 0.94 MG/DL (0.70-1.30); GLOMERULAR FILTRATION RATE > 60.0 (>60); GLUCOSE, FASTING 93 MG/DL (60-100); POTASSIUM SERUM 4.2 MMOL/L (3.5-5.1); SODIUM LEVEL 139 MMOL/L (136-145); TOTAL PROTEIN 5.4 G/DL (5.7-8.2)
[2023-09-19] MEDS ORDERED: FURO20TA2 PO (09:06)
[2023-09-19] MEDS ORDERED: ALDA25TA2 PO (09:06)
== END 2023-09-19 12:30 | disposition home or self-care (01) | DRG 330 ==
LOC: M OR 08:38 → M MSPAV 15:20
PROVIDERS: ADMIT Surgery; ATTEND Surgery
PROC: 0D1N0Z4 Bypass Sigmoid Colon to Cutaneous, Open Approach (ICD-10-PCS; principal; 2023-09-15 10:45)
DX: C20 Malignant neoplasm of rectum (principal); K51.213 Ulcerative (chronic) proctitis with fistula; K90.41 Non-celiac gluten sensitivity; K76.6 Portal hypertension; R18.8 Other ascites; F41.9 Anxiety disorder, unspecified; Z92.21 Personal history of antineoplastic chemotherapy; Z92.3 Personal history of irradiation; K62.4 Stenosis of anus and rectum; E73.9 Lactose intolerance, unspecified; Z79.899 Other long term (current) drug therapy; Z85.038 Personal history of other malignant neoplasm of large intestine; Z85.118 Personal history of other malignant neoplasm of bronchus and lung; Z87.891 Personal history of nicotine dependence; I10 Essential (primary) hypertension

== ENCOUNTER 2023-10-13 09:45 | Outpatient (RCR) | payer OTHER ==
[~2023-10-13 09:45] MED LIST changes: +ALDA25TA2 PO; +FURO20TA2 PO; +LIDO1PAD TOP; +METR-265 PO; +MIRA3350; +NEOM500T PO
[2023-10-16] MEDS ORDERED: MORP15TA2 PO (17:23)
== END 2023-10-15 ==
LOC: M ONCR 09:45
PROVIDERS: ATTEND General Practice
DX: Z51.0 Encounter for antineoplastic radiation therapy (principal); C79.51 Secondary malignant neoplasm of bone

== ENCOUNTER 2023-10-28 09:16 | Emergency (ER) | payer OTHER ==
[~2023-10-28] VITALS: Ht 177.8 cm; Wt 97.1 kg
[~2023-10-28 09:16] MED LIST changes: +FURO40TA2 PO; +MSIR30TA PO
[2023-10-28 10:50] LABS: HEMATOCRIT 25.6 % (42.0-52.0); HEMOGLOBIN 8.1 g/dl (13.5-17.5); MEAN CORPUSCULAR HEMOGLOBIN 28.9 pg (27.0-33.0); MEAN CORPUSCULAR HGB CONC 31.6 g/dl (32.0-36.5); MEAN CORPUSCULAR VOLUME 91.4 fl (80.0-96.0); PLATELET COUNT, AUTOMATED 146 10^3/uL (150-450); WHITE BLOOD COUNT 3.4 10^3/uL (4.0-10.0)
[2023-10-28] MEDS ORDERED: ISOVUE-370 76% 100ML VIAL As Ordered ONE (11:07)
[2023-10-28 11:14] LABS: INR 1.66; PROTHROMBIN TIME 19.1 SECONDS (12.5-14.5)
[2023-10-28 11:18] LABS: EOSINOPHILS 1 % (0-3); LIPASE 16 U/L (12-53); LYMPHOCYTES 6 % (16-44); NEUTROPHILS 89 % (28-66)
[2023-10-28 11:20] LABS: ALBUMIN 1.9 G/DL (3.2-5.2); ALKALINE PHOSPHATASE 494 U/L (46-116); ALT/SGPT 23 U/L (7.0-40); ANISOCYTOSIS 1+; AST/SGOT 56 U/L (<34); BILIRUBIN,TOTAL 1.7 MG/DL (0.3-1.2); BLOOD UREA NITROGEN 19 MG/DL (9-23); CARBON DIOXIDE LEVEL 28 MMOL/L (20-31); CHLORIDE LEVEL 97 MMOL/L (98-107); CREATININE FOR GFR 0.97 MG/DL (0.70-1.30); GLOMERULAR FILTRATION RATE > 60.0 (>60); GLUCOSE, FASTING 98 MG/DL (60-100); HYPOCHROMASIA 1+; PLATELET CLUMPS SMALL AMT; PLATELET ESTIMATE NORMAL (NORMAL); POTASSIUM SERUM 4.6 MMOL/L (3.5-5.1); SODIUM LEVEL 132 MMOL/L (136-145); TOTAL PROTEIN 5.6 G/DL (5.7-8.2)
[2023-10-28 11:21] LABS: TEAR DROP CELLS 1+
[2023-10-28 11:22] LABS: SCHISTOCYTES 1+
[2023-10-28] MEDS: NS 1,000 ML IV ONE (11:57)
[2023-10-28] MEDS: NS 500 ML IV ONE (11:58)
[2023-10-28] MEDS: HYDROMORPHONE HCL 0.5 MG/ 0.5 ML SYRINGE IV ONE (13:45)
[2023-10-28] MEDS: LORazepam 2 MG/ML 1ML VIAL IV STA (13:46)
[2023-10-28 14:45] VITALS: BP 114/68; TEMP 99.7; O2SAT 94
[2023-11-01] MEDS ORDERED: LIDO15SO8 PO (16:15)
== END 2023-10-28 15:15 | disposition home or self-care (01) ==
LOC: M ED 09:16
DX: R10.9 Unspecified abdominal pain (principal); R18.8 Other ascites; I45.81 Long QT syndrome; Z85.040 Personal history of malignant carcinoid tumor of rectum; Z87.891 Personal history of nicotine dependence; Z91.011 Allergy to milk products; Z79.810 Long term (current) use of selective estrogen receptor modulators (SERMs); Z79.899 Other long term (current) drug therapy
CPT/HCPCS: 71045; 74177; 80047; 80053; 81001; 83605; 83690; 85025; 85610; 86850; 86900; 86901; 87040; 93005; 93041; 96361; 96374; 96375; 99284; J1170; J2060; Q9967

== ENCOUNTER → 2023-10-30 | Outpatient (CLI) | payer OTHER ==
[2023-10-30 14:30] VITALS: TEMP 98.3
[2023-10-30 16:00] VITALS: BP 101/57; O2SAT 97
== END ==
LOC: M IRPRO 14:00
PROVIDERS: ATTEND Specialist
DX: R18.8 Other ascites (principal)

== ENCOUNTER → 2023-11-02 | Outpatient (CLI) | payer OTHER ==
[~2023-11-02] VITALS: Ht 177.8 cm; Wt 90.9 kg
[~2023-11-02] MED LIST changes: +B-12100020 PO; +BACI1CAP4 PO; +CIPR-249 PO; +CIPR-250 PO; +CIPR500T39 PO; +DOCU100C16 PO; +FLOM0.4C39 PO; +GABA-1490 PO; -GABA600T4 PO; +LIDO15SO8 PO; +MM S100C PO; +MORP30TASA PO; +PROBCAP14 PO; +PYRI1TAB5 PO; +SPIR-10 PO; +TORS20TA2 PO
[2023-11-02 10:52] VITALS: BP 122/73; O2SAT 98
[2023-11-02 12:40] LABS: APPEARANCE, URINE HAZY (CLEAR); BACTERIA, URINE AUTO NEGATIVE (NEGATIVE); BILIRUBIN, URINE AUTO NEGATIVE (NEGATIVE); BLOOD, URINE BLOOD NEGATIVE (NEGATIVE); COLOR, URINE AMBER (YELLOW); GLUCOSE, URINE (UA) AUTO NEGATIVE (NEGATIVE); KETONE, URINE AUTO NEGATIVE (NEGATIVE); LEUKOCYTE ESTERASE, URINE AUTO NEGATIVE (NEGATIVE); MUCUS, URINE SMALL (NEGATIVE); NITRITE, URINE AUTO NEGATIVE (NEGATIVE); PROTEIN, URINE AUTO 1+ mg/dL (NEGATIVE); RBC, URINE AUTO 1 /HPF (0-3); SPECIFIC GRAVITY URINE AUTO 1.023 (1.002-1.035); SQUAMOUS EPITHELIAL CELL UR AU 0 /HPF (0-6); WBC, URINE AUTO 0 /HPF (0-3)
== END ==
LOC: M PAL 10:36
PROVIDERS: ATTEND Nurse Practitioner Adult Health
DX: C20 Malignant neoplasm of rectum (principal); C78.7 Secondary malignant neoplasm of liver and intrahepatic bile duct; C78.00 Secondary malignant neoplasm of unspecified lung; G89.3 Neoplasm related pain (acute) (chronic); R30.0 Dysuria; R53.83 Other fatigue; F41.9 Anxiety disorder, unspecified; F32.A Depression, unspecified; E73.9 Lactose intolerance, unspecified; R91.8 Other nonspecific abnormal finding of lung field; Z51.5 Encounter for palliative care; Z79.52 Long term (current) use of systemic steroids; Z79.891 Long term (current) use of opiate analgesic; Z79.899 Other long term (current) drug therapy; Z87.891 Personal history of nicotine dependence; Z92.21 Personal history of antineoplastic chemotherapy; Z92.3 Personal history of irradiation; Z91.018 Allergy to other foods; Z80.0 Family history of malignant neoplasm of digestive organs; Z80.1 Family history of malignant neoplasm of trachea, bronchus and lung
CPT/HCPCS: 81001; 87086; G0463

== ENCOUNTER 2023-11-09 09:36 | Outpatient (RCR) | payer OTHER ==
[~2023-11-09 09:36] MED LIST changes: -B-12100020 PO; -BACI1CAP4 PO; -CIPR-249 PO; -CIPR500T39 PO; -DOCU100C16 PO; -GABA-1490 PO; +GABA600T4 PO; -MM S100C PO; -PROBCAP14 PO; -SPIR-10 PO; -TORS20TA2 PO
== END 2023-11-15 ==
LOC: M ONCR 09:36
PROVIDERS: ATTEND General Practice
DX: Z51.0 Encounter for antineoplastic radiation therapy (principal); C79.51 Secondary malignant neoplasm of bone

== ENCOUNTER → 2023-11-10 | Outpatient (CLI) | payer OTHER ==
[2023-11-10 11:20] VITALS: TEMP 98
[2023-11-10 12:34] VITALS: BP 115/61; O2SAT 98
== END ==
LOC: M IRPRO 11:08
PROVIDERS: ATTEND General Practice
DX: R18.8 Other ascites (principal)

== ENCOUNTER → 2023-11-23 | Outpatient (CLI) | payer OTHER ==
[~2023-11-23] VITALS: Ht 177.8 cm; Wt 88.1 kg
[~2023-11-23] MED LIST changes: +B-12100020 PO; +BACI1CAP4 PO; +CIPR-249 PO; +CIPR500T39 PO; +DOCU100C16 PO; +GABA-1490 PO; -GABA600T4 PO; +MM S100C PO; +PROBCAP14 PO; +SPIR-10 PO
[2023-11-23 09:33] VITALS: BP 111/68; O2SAT 100
== END ==
LOC: M PAL 09:25
PROVIDERS: ATTEND Nurse Practitioner Adult Health
DX: C20 Malignant neoplasm of rectum (principal); C78.7 Secondary malignant neoplasm of liver and intrahepatic bile duct; C78.00 Secondary malignant neoplasm of unspecified lung; G89.3 Neoplasm related pain (acute) (chronic); R53.83 Other fatigue; F41.9 Anxiety disorder, unspecified; F32.A Depression, unspecified; E73.9 Lactose intolerance, unspecified; R91.8 Other nonspecific abnormal finding of lung field; Z51.5 Encounter for palliative care; Z79.52 Long term (current) use of systemic steroids; Z79.891 Long term (current) use of opiate analgesic; Z79.899 Other long term (current) drug therapy; Z87.891 Personal history of nicotine dependence; Z92.21 Personal history of antineoplastic chemotherapy; Z92.3 Personal history of irradiation; Z91.018 Allergy to other foods; Z80.0 Family history of malignant neoplasm of digestive organs; Z80.1 Family history of malignant neoplasm of trachea, bronchus and lung; Z93.3 Colostomy status

== ENCOUNTER 2023-11-24 08:30 | Outpatient (RCR) | payer OTHER ==
[~2023-11-24 08:30] MED LIST changes: +GABA-1490 PO; -GABA600T4 PO; -ISOVUE-370 76% 100ML VIAL As Ordered ONE
[2023-12-16] MEDS ORDERED: FURO40TA2 PO (01:01)
[2023-12-16] MEDS ORDERED: SPIR-10 PO (01:01)
[2023-12-16] MEDS ORDERED: B-12100020 PO (03:41)
[2023-12-21] MEDS ORDERED: METR-265 PO (18:22)
[2023-12-29] MEDS ORDERED: TORS20TA2 PO (09:56)
== END 2023-12-16 ==
LOC: M ONCR 08:30
PROVIDERS: ATTEND General Practice
DX: Z51.0 Encounter for antineoplastic radiation therapy (principal); C79.51 Secondary malignant neoplasm of bone

== ENCOUNTER → 2023-11-24 | Outpatient (CLI) | payer OTHER ==
[~2023-11-24] MED LIST changes: -B-12100020 PO; -BACI1CAP4 PO; -CIPR-249 PO; -CIPR500T39 PO; -DOCU100C16 PO; -GABA-1490 PO; +GABA600T4 PO; +ISOVUE-370 76% 100ML VIAL As Ordered ONE; -MM S100C PO; -PROBCAP14 PO; -SPIR-10 PO
== END ==
LOC: M RAD 15:47
PROVIDERS: ATTEND General Practice
DX: C78.7 Secondary malignant neoplasm of liver and intrahepatic bile duct (principal); R18.8 Other ascites; C78.00 Secondary malignant neoplasm of unspecified lung; J98.11 Atelectasis

== ENCOUNTER → 2023-12-13 | Outpatient (POV) | payer OTHER ==
[~2023-12-13] VITALS: Ht 177.8 cm; Wt 84.0 kg
[~2023-12-13] MED LIST changes: +B-12100020 PO; +BACI1CAP4 PO; +CIPR-249 PO; +CIPR500T39 PO; +DOCU100C16 PO; +GABA-1172 PO; -GABA-282 PO; +LACT20EL PO; +LORA2CON5 PO; +MM S100C PO; +MORP1SOL5 PO; +PROBCAP14 PO; +SPIR-10 PO; +TORS20TA2 PO; +TRAN1DIS4 TOP; +XIFA550T PO
[2023-12-13 14:45] VITALS: BP 118/76; O2SAT 100
== END ==
LOC: M IRPOV 14:30
PROVIDERS: ATTEND General Practice
DX: R18.8 Other ascites (principal); C18.9 Malignant neoplasm of colon, unspecified; C78.00 Secondary malignant neoplasm of unspecified lung; C78.7 Secondary malignant neoplasm of liver and intrahepatic bile duct; R16.0 Hepatomegaly, not elsewhere classified; Z79.891 Long term (current) use of opiate analgesic; Z79.899 Other long term (current) drug therapy; Z91.018 Allergy to other foods; Z92.21 Personal history of antineoplastic chemotherapy; Z92.3 Personal history of irradiation

== ENCOUNTER 2023-12-15 19:21 | Inpatient (IN) | payer OTHER ==
[~2023-12-15] VITALS: Ht 177.8 cm; Wt 82.7 kg
[~2023-12-15 19:21] MED LIST changes: -B-12100020 PO; -BACI1CAP4 PO; -CIPR-249 PO; -CIPR500T39 PO; -DOCU100C16 PO; -MM S100C PO; -PROBCAP14 PO; -SPIR-10 PO; -TORS20TA2 PO
[2023-12-15 21:14] LABS: HEMATOCRIT 23.1 % (42.0-52.0); HEMOGLOBIN 7.2 g/dl (13.5-17.5); LYMPH # 0.2 10^3/uL (1.5-5.0); LYMPH % 16.8 % (24.0-44.0); MEAN CORPUSCULAR HEMOGLOBIN 27.7 pg (27.0-33.0); MEAN CORPUSCULAR HGB CONC 31.2 g/dl (32.0-36.5); MEAN CORPUSCULAR VOLUME 88.8 fl (80.0-96.0); MONO # 0.2 10^3/uL (0.0-0.8); NEUTROPHILS % 68.3 % (36.0-66.0); PLATELET COUNT, AUTOMATED 103 10^3/uL (150-450); WHITE BLOOD COUNT 1.1 10^3/uL (4.0-10.0)
[2023-12-15 21:21] LABS: NEUTROPHILS # 0.7 10^3/uL (1.5-8.5)
[2023-12-15 21:28] LABS: CK-MB VALUE MASS < 1.0 NG/ML (<3.6); LIPASE 21 U/L (12-53)
[2023-12-15 21:29] LABS: CPK CREATINE PHOSPHOKINASE 55 U/L (46-171); MB/CK RELATIVE INDEX 1.81 (< OR =4)
[2023-12-15 21:30] LABS: ALBUMIN 2.2 G/DL (3.2-5.2); ALKALINE PHOSPHATASE 598 U/L (46-116); ALT/SGPT 28 U/L (7.0-40); AST/SGOT 29 U/L (<34); BILIRUBIN,TOTAL 1.5 MG/DL (0.3-1.2); BLOOD UREA NITROGEN 27 MG/DL (9-23); CALCIUM LEVEL 8.7 MG/DL (8.5-10.1); CARBON DIOXIDE LEVEL 24 MMOL/L (20-31); CHLORIDE LEVEL 101 MMOL/L (98-107); CREATININE FOR GFR 0.78 MG/DL (0.70-1.30); GLOMERULAR FILTRATION RATE > 60.0 (>60); GLUCOSE, FASTING 97 MG/DL (60-100); POTASSIUM SERUM 4.6 MMOL/L (3.5-5.1); SODIUM LEVEL 134 MMOL/L (136-145); TOTAL PROTEIN 6.3 G/DL (5.7-8.2)
[2023-12-15] MEDS: MORPHINE 30 MG SA TAB PO ONE (22:23)
[2023-12-15] MEDS: cefTRIAXone SOD 2 GM in D5W MINI-BAG PLUS 50 ML IV ONE (22:24)
[2023-12-15] MEDS: NS 1,000 ML IV ONE (23:00)
[2023-12-16] MEDS ORDERED: SPIR-10 PO (01:01)
[2023-12-16] MEDS ORDERED: FURO40TA2 PO (01:01)
[2023-12-16] MEDS ORDERED: HOME MED LIST COMPLETE! XX SCH (01:05)
[2023-12-16] MEDS ORDERED: SPIRONOLACTONE 25 MG TAB PO PRN (02:35)
[2023-12-16] MEDS ORDERED: LIDOCAINE 5% (LIDODERM) PATCH TOP PRN (02:35)
[2023-12-16] MEDS ORDERED: FUROSEMIDE 40 MG TAB PO PRN (02:35)
[2023-12-16] MEDS ORDERED: B-12100020 PO (03:41)
[2023-12-16] MEDS: NS 1,000 ML IV SCH (05:25)
[2023-12-16] MEDS ORDERED: CYANOCOBALAMIN 500 MCG TAB PO SCH (09:00)
[2023-12-16] MEDS ORDERED: VITAMIN B COMPLEX/VIT C CAP PO SCH (09:00)
[2023-12-16] MEDS ORDERED: MULTIVITAMINS/MINERALS THERAP 1 TAB PO SCH (09:00)
[2023-12-16] MEDS: PANTOPRAZOLE 40MG VIAL IV SCH (11:38)
[2023-12-16] MEDS: dexAMETHasone 4 MG TAB PO SCH (11:44)
[2023-12-16] MEDS: MORPHINE 30 MG SA TAB PO SCH (11:44)
[2023-12-16] MEDS: FILGRASTIM 480 MCG/0.8 ML SYRINGE **SC ADMINISTRATION ONLY SC SCH (11:45)
[2023-12-16] MEDS: ENOXAPARIN 40MG/0.4ML SYRINGE (J1650 PER 10MG) SC SCH (11:50)
[2023-12-16 15:48] VITALS: BP 103/66; TEMP 98.8; O2SAT 97
[2023-12-16] MEDS: LACTULOSE 20GM/30ML SYRUP UDC PO SCH (17:16)
[2023-12-16] MEDS: BISACODYL 10MG SUPP PR ONE (17:31)
[2023-12-16] MEDS: cefTRIAXone SOD 2 GM in D5W MINI-BAG PLUS 50 ML IV SCH (20:05)
[2023-12-16 20:06] VITALS: BP 109/69; TEMP 98.2; O2SAT 98
[2023-12-17] VITALS (13 sets, daily range): BP systolic 101–120; BP diastolic 60–76; TEMP 97.9–98.8; O2SAT 96–100
[2023-12-17 07:12] LABS: ALBUMIN 1.9 G/DL (3.2-5.2); ALKALINE PHOSPHATASE 408 U/L (46-116); ALT/SGPT 26 U/L (7.0-40); AST/SGOT 23 U/L (<34); BILIRUBIN,TOTAL 1.1 MG/DL (0.3-1.2); BLOOD UREA NITROGEN 23 MG/DL (9-23); CALCIUM LEVEL 8.1 MG/DL (8.5-10.1); CARBON DIOXIDE LEVEL 24 MMOL/L (20-31); CHLORIDE LEVEL 104 MMOL/L (98-107); CREATININE FOR GFR 0.83 MG/DL (0.70-1.30); GLOMERULAR FILTRATION RATE > 60.0 (>60); GLUCOSE, FASTING 112 MG/DL (60-100); MAGNESIUM LEVEL 2.2 MG/DL (1.8-2.4); POTASSIUM SERUM 4.4 MMOL/L (3.5-5.1); SODIUM LEVEL 136 MMOL/L (136-145); TOTAL PROTEIN 5.1 G/DL (5.7-8.2)
[2023-12-17 07:55] LABS: MEAN CORPUSCULAR HEMOGLOBIN 28.4 pg (27.0-33.0); MEAN CORPUSCULAR HGB CONC 30.2 g/dl (32.0-36.5); MEAN CORPUSCULAR VOLUME 94.2 fl (80.0-96.0); WHITE BLOOD COUNT 1.2 10^3/uL (4.0-10.0)
[2023-12-17 07:56] LABS: HEMATOCRIT 17.9 % (42.0-52.0); HEMOGLOBIN 5.4 g/dl (13.5-17.5); PLATELET COUNT, AUTOMATED 52 10^3/uL (150-450)
[2023-12-17 08:24] LABS: LYMPHOCYTES 13 % (16-44); MONOCYTES 19 % (0-5); NEUTROPHILS 41 % (28-66); PLATELET ESTIMATE DECREASED (NORMAL)
[2023-12-17 08:25] LABS: ANISOCYTOSIS 2+; POIKILOCYTOSIS 2+; POLYCHROMASIA 1+
[2023-12-17] MEDS: VENLAFAXINE **XR** 75MG CAPSULE PO SCH (09:13)
[2023-12-17] MEDS: GABAPENTIN 300 MG CAP PO SCH (09:13)
[2023-12-18 04:09] VITALS: BP 113/65; TEMP 98.1; O2SAT 98
[2023-12-18 06:23] LABS: BASO # 0.1 10^3/uL (0.0-0.2); EOS % 0.2 % (0.0-3.0); HEMOGLOBIN 8.5 g/dl (13.5-17.5); LYMPH # 0.2 10^3/uL (1.5-5.0); LYMPH % 3.7 % (24.0-44.0); MEAN CORPUSCULAR HEMOGLOBIN 29.3 pg (27.0-33.0); MEAN CORPUSCULAR HGB CONC 31.5 g/dl (32.0-36.5); MEAN CORPUSCULAR VOLUME 93.1 fl (80.0-96.0); MONO # 0.6 10^3/uL (0.0-0.8); MONO % 10.8 % (2.0-8.0); NEUTROPHILS # 4.3 10^3/uL (1.5-8.5); NEUTROPHILS % 83.3 % (36.0-66.0); WHITE BLOOD COUNT 5.2 10^3/uL (4.0-10.0)
[2023-12-18 06:26] LABS: PLATELET COUNT, AUTOMATED 52 10^3/uL (150-450)
[2023-12-18 06:49] LABS: ALKALINE PHOSPHATASE 379 U/L (46-116); ALT/SGPT 19 U/L (7.0-40); AST/SGOT 17 U/L (<34); BILIRUBIN,TOTAL 1.3 MG/DL (0.3-1.2); BLOOD UREA NITROGEN 24 MG/DL (9-23); CALCIUM LEVEL 8.4 MG/DL (8.5-10.1); CARBON DIOXIDE LEVEL 22 MMOL/L (20-31); CHLORIDE LEVEL 106 MMOL/L (98-107); CREATININE FOR GFR 0.86 MG/DL (0.70-1.30); GLOMERULAR FILTRATION RATE > 60.0 (>60); GLUCOSE, FASTING 103 MG/DL (60-100); MAGNESIUM LEVEL 2.2 MG/DL (1.8-2.4); POTASSIUM SERUM 4.6 MMOL/L (3.5-5.1); SODIUM LEVEL 136 MMOL/L (136-145); TOTAL PROTEIN 5.2 G/DL (5.7-8.2)
[2023-12-18 08:42] VITALS: BP 127/78; TEMP 98.1; O2SAT 98
[2023-12-18] MEDS: SENOKOT S TAB PO SCH (09:12)
[2023-12-18 12:00] VITALS: BP 127/72; TEMP 98.1; O2SAT 99
[2023-12-18 16:00] VITALS: BP 114/73; TEMP 98.2; O2SAT 98
[2023-12-18 19:52] VITALS: BP 126/74; TEMP 98.1; O2SAT 96
[2023-12-19 00:30] VITALS: BP 117/73; TEMP 98.1; O2SAT 98
[2023-12-19 03:54] VITALS: BP 114/72; TEMP 97.9; O2SAT 98
[2023-12-19] MEDS: CIPROFLOXACIN 500MG TABLET PO SCH (06:00)
[2023-12-19 06:07] LABS: BASO # 0.1 10^3/uL (0.0-0.2); BASO % 0.6 % (0.0-1.0); EOS % 0.5 % (0.0-3.0); HEMATOCRIT 28.9 % (42.0-52.0); HEMOGLOBIN 8.8 g/dl (13.5-17.5); LYMPH # 0.4 10^3/uL (1.5-5.0); LYMPH % 4.6 % (24.0-44.0); MEAN CORPUSCULAR HEMOGLOBIN 28.7 pg (27.0-33.0); MEAN CORPUSCULAR HGB CONC 30.4 g/dl (32.0-36.5); MEAN CORPUSCULAR VOLUME 94.1 fl (80.0-96.0); MONO # 0.9 10^3/uL (0.0-0.8); MONO % 10.1 % (2.0-8.0); NEUTROPHILS # 6.7 10^3/uL (1.5-8.5); NEUTROPHILS % 77.3 % (36.0-66.0); RED BLOOD COUNT 3.07 10^6/uL (4.30-6.10); WHITE BLOOD COUNT 8.7 10^3/uL (4.0-10.0)
[2023-12-19 06:23] LABS: PLATELET COUNT, AUTOMATED 62 10^3/uL (150-450)
[2023-12-19 08:00] VITALS: BP 118/69; TEMP 97.9; O2SAT 100
[2023-12-19] MEDS ORDERED: CIPR-249 PO (10:38)
[2023-12-19] MEDS ORDERED: CIPR500T39 PO ×2 (10:43→10:46)
[2023-12-19] MEDS ORDERED: PROBCAP14 PO (10:46)
[2023-12-19 12:00] VITALS: BP 114/70; TEMP 98.1; O2SAT 98
[2023-12-19 17:28] LABS: APPEARANCE, BODY FLUID TURBID (CLEAR); ASCITES FL COLOR PINK (COLORLESS); SOURCE, BODY FLUID ASCITES
[2023-12-19] MEDS: cefTRIAXone SOD 2 GM in D5W MINI-BAG PLUS 50 ML IV SCH (18:22)
[2023-12-19 20:41] VITALS: BP 125/85; TEMP 98.1; O2SAT 98
[2023-12-19 21:35] VITALS: TEMP 97.8
[2023-12-20 00:06] VITALS: BP 122/83; TEMP 98.1; O2SAT 97
[2023-12-20 05:04] VITALS: BP 121/81; TEMP 97; O2SAT 96
[2023-12-20 06:04] LABS: HEMATOCRIT 30.2 % (42.0-52.0); HEMOGLOBIN 9.5 g/dl (13.5-17.5); MEAN CORPUSCULAR HEMOGLOBIN 29.5 pg (27.0-33.0); MEAN CORPUSCULAR HGB CONC 31.5 g/dl (32.0-36.5); MEAN CORPUSCULAR VOLUME 93.8 fl (80.0-96.0); RED BLOOD COUNT 3.22 10^6/uL (4.30-6.10); WHITE BLOOD COUNT 7.2 10^3/uL (4.0-10.0)
[2023-12-20 06:11] LABS: PLATELET COUNT, AUTOMATED 67 10^3/uL (150-450)
[2023-12-20 06:25] LABS: ALBUMIN 2.3 G/DL (3.2-5.2); ALKALINE PHOSPHATASE 905 U/L (46-116); ALT/SGPT 35 U/L (7.0-40); AST/SGOT 43 U/L (<34); BILIRUBIN,TOTAL 1.1 MG/DL (0.3-1.2); BLOOD UREA NITROGEN 19 MG/DL (9-23); CALCIUM LEVEL 8.6 MG/DL (8.5-10.1); CARBON DIOXIDE LEVEL 28 MMOL/L (20-31); CHLORIDE LEVEL 101 MMOL/L (98-107); GLOMERULAR FILTRATION RATE > 60.0 (>60); GLUCOSE, FASTING 102 MG/DL (60-100); MAGNESIUM LEVEL 2.2 MG/DL (1.8-2.4); POTASSIUM SERUM 4.7 MMOL/L (3.5-5.1); SODIUM LEVEL 133 MMOL/L (136-145); TOTAL PROTEIN 5.7 G/DL (5.7-8.2)
[2023-12-20 06:46] LABS: LYMPHOCYTES 2 % (16-44); METAMYELOCYTES 4 % (0-0); MONOCYTES 5 % (0-5); MYELOCYTES 8 % (0-0); PLATELET ESTIMATE DECREASED (NORMAL)
[2023-12-20 06:47] LABS: ANISOCYTOSIS 2+; HYPOCHROMASIA 1+
[2023-12-20 06:48] LABS: TEAR DROP CELLS 1+
[2023-12-20 06:50] LABS: NEUTROPHILS 70 % (28-66); POLYCHROMASIA 2+
[2023-12-20] MEDS: FUROSEMIDE 40MG/4ML VIAL IV ONE (08:35)
[2023-12-20] MEDS: SPIRONOLACTONE 25 MG TAB PO SCH (08:35)
[2023-12-20] MEDS ORDERED: SPIR-10 PO (10:34)
[2023-12-20] MEDS ORDERED: FURO40TA2 PO (10:34)
[2023-12-20] MEDS ORDERED: CIPR500T39 PO (10:34)
[2023-12-20] MEDS ORDERED: MM S100C PO (14:19)
[2023-12-21] MEDS ORDERED: METR-265 PO (18:22)
[2023-12-29] MEDS ORDERED: TORS20TA2 PO (09:56)
== END 2023-12-20 11:16 | disposition home health service (06) | DRG 371 ==
LOC: M ED 19:21 → M ED INP 23:48 → M MSPAV 12-16 16:08
PROVIDERS: ADMIT Family Medicine; ATTEND Internal Medicine
PROC: 30233N1 Transfusion of Nonautologous Red Blood Cells into Peripheral Vein, Percutaneous Approach (ICD-10-PCS; principal; 2023-12-17)
PROC: 0W9G3ZZ Drainage of Peritoneal Cavity, Percutaneous Approach (ICD-10-PCS; 2023-12-19)
DX: K65.2 Spontaneous bacterial peritonitis (principal); D61.810 Antineoplastic chemotherapy induced pancytopenia; E43 Unspecified severe protein-calorie malnutrition; C19 Malignant neoplasm of rectosigmoid junction; C78.7 Secondary malignant neoplasm of liver and intrahepatic bile duct; C78.00 Secondary malignant neoplasm of unspecified lung; R18.8 Other ascites; K76.6 Portal hypertension; K56.7 Ileus, unspecified; Z68.1 Body mass index [BMI] 19.9 or less, adult; C79.2 Secondary malignant neoplasm of skin; E87.1 Hypo-osmolality and hyponatremia; D62 Acute posthemorrhagic anemia; I10 Essential (primary) hypertension; F40.01 Agoraphobia with panic disorder; G89.4 Chronic pain syndrome; G62.9 Polyneuropathy, unspecified; Z93.3 Colostomy status; Z79.891 Long term (current) use of opiate analgesic; Z79.899 Other long term (current) drug therapy; E73.9 Lactose intolerance, unspecified; K42.9 Umbilical hernia without obstruction or gangrene; K59.00 Constipation, unspecified

== ENCOUNTER → 2023-12-15 | Outpatient (CLI) | payer OTHER ==
[~2023-12-15] MED LIST changes: -GABA-1172 PO; +GABA-282 PO; -LACT20EL PO; -LORA2CON5 PO; -MORP1SOL5 PO; -TRAN1DIS4 TOP; -XIFA550T PO
[2023-12-15 13:10] VITALS: TEMP 98.2
[2023-12-15 13:50] VITALS: BP 119/71; O2SAT 100
[2023-12-15 15:24] LABS: SOURCE, BODY FLUID ALBUMIN ASCITES
[2023-12-15 15:29] LABS: SOURCE, BODY FLUID TRIG ASCITES; TRIGLYCERIDE, BODY FLUID 42 MG/DL (NOT ESTABLISHED)
[2023-12-15 15:31] LABS: CHOLESTEROL, BODY FLUID 57 MG/DL (NOT ESTABLISHED); SOURCE, BODY FLUID CHOL ASCITES
== END ==
LOC: M IRPRO 12:48
PROVIDERS: ATTEND Radiology Diagnostic Radiology
DX: R18.8 Other ascites (principal)

== ENCOUNTER → 2023-12-22 | Outpatient (CLI) | payer OTHER ==
[~2023-12-22] MED LIST changes: +B-12100020 PO; +BACI1CAP4 PO; +CIPR-249 PO; +CIPR500T39 PO; +DOCU100C16 PO; +MM S100C PO; +PROBCAP14 PO; +SPIR-10 PO; +TORS20TA2 PO
== END ==
LOC: M ONCR 08:05
PROVIDERS: ATTEND General Practice
DX: R23.3 Spontaneous ecchymoses (principal); L02.211 Cutaneous abscess of abdominal wall; Z92.21 Personal history of antineoplastic chemotherapy

== ENCOUNTER → 2023-12-22 | Outpatient (REF) | payer OTHER ==
[~2023-12-22] MED LIST changes: +LACT20EL PO; +XIFA550T PO
[2023-12-22 10:19] LABS: BLOOD UREA NITROGEN 16 MG/DL (9-23); CARBON DIOXIDE LEVEL 28 MMOL/L (20-31); CHLORIDE LEVEL 100 MMOL/L (98-107); CREATININE FOR GFR 0.61 MG/DL (0.70-1.30); GLOMERULAR FILTRATION RATE > 60.0 (>60); GLUCOSE, FASTING 144 MG/DL (60-100); POTASSIUM SERUM 3.5 MMOL/L (3.5-5.1); SODIUM LEVEL 134 MMOL/L (136-145)
== END ==
LOC: M LAB REF 09:21
PROVIDERS: ATTEND Internal Medicine
DX: Z79.83 Long term (current) use of bisphosphonates (principal)

== ENCOUNTER 2023-12-26 09:19 | Inpatient (IN) | payer OTHER ==
[~2023-12-26] VITALS: Ht 177.8 cm; Wt 85.8 kg
[2023-12-26] VITALS (10 sets, daily range): BP systolic 96–112; BP diastolic 55–66; TEMP 97.2–100.5; O2SAT 92–100
[~2023-12-26 09:19] MED LIST changes: -BACI1CAP4 PO; -DOCU100C16 PO; -LACT20EL PO; -TORS20TA2 PO; -XIFA550T PO
[2023-12-26] MEDS: NS 1,000 ML IV ONE (09:31)
[2023-12-26] MEDS ORDERED: ISOVUE-370 76% 100ML VIAL As Ordered ONE (10:15)
[2023-12-26] MEDS: cefTRIAXone SOD 2 GM in D5W MINI-BAG PLUS 50 ML IV ONE (10:52)
[2023-12-26] MEDS: NS 2,570 ML in IV 1 EA IV ONE (10:53)
[2023-12-26] MEDS ORDERED: CIPR-249 PO (13:11)
[2023-12-26] MEDS ORDERED: DOCU100C16 PO (13:11)
[2023-12-26] MEDS ORDERED: METR-265 PO (13:11)
[2023-12-26] MEDS ORDERED: BACI1CAP4 PO (13:11)
[2023-12-26] MEDS ORDERED: HOME MED LIST COMPLETE! XX SCH (13:15)
[2023-12-26] MEDS ORDERED: DOCUSATE SODIUM 100MG CAPSULE PO PRN (17:40)
[2023-12-26] MEDS: GABAPENTIN 300 MG CAP PO SCH (20:51)
[2023-12-26] MEDS: metroNIDAZOLE (FLAGYL) 500MG TABLET PO SCH (20:53)
[2023-12-26] MEDS: MORPHINE 30 MG SA TAB PO SCH (20:53)
[2023-12-26 20:57] LABS: HEMATOCRIT 26.4 % (42.0-52.0); HEMOGLOBIN 8.7 g/dl (13.5-17.5); MEAN CORPUSCULAR HEMOGLOBIN 29.5 pg (27.0-33.0); MEAN CORPUSCULAR VOLUME 89.5 fl (80.0-96.0); RED BLOOD COUNT 2.95 10^6/uL (4.30-6.10); WHITE BLOOD COUNT 16.7 10^3/uL (4.0-10.0)
[2023-12-26 21:34] LABS: PLATELET COUNT, AUTOMATED 80 10^3/uL (150-450)
[2023-12-27 04:43] VITALS: BP 105/64; TEMP 99.7; O2SAT 94
[2023-12-27 05:30] LABS: BASO # 0.1 10^3/uL (0.0-0.2); BASO % 0.7 % (0.0-1.0); EOS # 0.1 10^3/uL (0.0-0.5); EOS % 0.5 % (0.0-3.0); HEMATOCRIT 26.1 % (42.0-52.0); HEMOGLOBIN 8.6 g/dl (13.5-17.5); LYMPH # 0.5 10^3/uL (1.5-5.0); LYMPH % 3.3 % (24.0-44.0); MEAN CORPUSCULAR HEMOGLOBIN 29.3 pg (27.0-33.0); MEAN CORPUSCULAR VOLUME 88.8 fl (80.0-96.0); MONO # 1.5 10^3/uL (0.0-0.8); NEUTROPHILS # 12.5 10^3/uL (1.5-8.5); NEUTROPHILS % 82.7 % (36.0-66.0); PLATELET COUNT, AUTOMATED 83 10^3/uL (150-450); RED BLOOD COUNT 2.94 10^6/uL (4.30-6.10); WHITE BLOOD COUNT 15.1 10^3/uL (4.0-10.0)
[2023-12-27 06:00] LABS: BLOOD UREA NITROGEN 10 MG/DL (9-23); CALCIUM LEVEL 7.4 MG/DL (8.5-10.1); CARBON DIOXIDE LEVEL 28 MMOL/L (20-31); CHLORIDE LEVEL 101 MMOL/L (98-107); CREATININE FOR GFR 0.69 MG/DL (0.70-1.30); GLOMERULAR FILTRATION RATE > 60.0 (>60); GLUCOSE, FASTING 75 MG/DL (60-100); POTASSIUM SERUM 4.3 MMOL/L (3.5-5.1); SODIUM LEVEL 131 MMOL/L (136-145)
[2023-12-27 08:30] VITALS: BP 108/70; TEMP 100.3; O2SAT 98
[2023-12-27] MEDS: VENLAFAXINE **XR** 75MG CAPSULE PO SCH (08:43)
[2023-12-27 10:02] VITALS: BP 106/68; TEMP 98.3; O2SAT 96
[2023-12-27 10:12] VITALS: BP 122/65; TEMP 98.8; O2SAT 96
[2023-12-27 10:29] VITALS: BP 117/66; TEMP 98.3; O2SAT 94
[2023-12-27] MEDS: cefTRIAXone SOD 1 GM in D5W MINI-BAG PLUS 50 ML IV SCH (11:11)
[2023-12-27 12:00] VITALS: BP 120/68; TEMP 99.8; O2SAT 95
[2023-12-27] MEDS: SODIUM CHLORIDE 0.9% INJ 10 ML SYR IV PRN (14:46)
[2023-12-29] MEDS ORDERED: TORS20TA2 PO (09:56)
== END 2023-12-27 14:58 | disposition home or self-care (01) | DRG 393 ==
LOC: M ED 09:19 → M ED INP 13:11 → M PCU 14:37
PROVIDERS: ADMIT Internal Medicine Nephrology; ATTEND Internal Medicine Nephrology
PROC: 30233N1 Transfusion of Nonautologous Red Blood Cells into Peripheral Vein, Percutaneous Approach (ICD-10-PCS; principal; 2023-12-26)
PROC: 30233J1 Transfusion of Nonautologous Serum Albumin into Peripheral Vein, Percutaneous Approach (ICD-10-PCS; 2023-12-27)
DX: K94.03 Colostomy malfunction (principal); R57.8 Other shock; R18.8 Other ascites; C18.9 Malignant neoplasm of colon, unspecified; C78.7 Secondary malignant neoplasm of liver and intrahepatic bile duct; C78.00 Secondary malignant neoplasm of unspecified lung; C79.2 Secondary malignant neoplasm of skin; K76.6 Portal hypertension; D62 Acute posthemorrhagic anemia; K90.41 Non-celiac gluten sensitivity; I95.9 Hypotension, unspecified; K74.60 Unspecified cirrhosis of liver; F40.01 Agoraphobia with panic disorder; G89.29 Other chronic pain; G62.9 Polyneuropathy, unspecified; E73.9 Lactose intolerance, unspecified; Z87.891 Personal history of nicotine dependence; Z79.891 Long term (current) use of opiate analgesic; Z79.899 Other long term (current) drug therapy

== ENCOUNTER → 2023-12-29 | Outpatient (CLI) | payer OTHER ==
[~2023-12-29] MED LIST changes: +BACI1CAP4 PO; +DOCU100C16 PO; +TORS20TA2 PO
== END ==
LOC: M RAD 10:27
PROVIDERS: ATTEND Radiology Diagnostic Radiology
DX: Z01.818 Encounter for other preprocedural examination (principal); R18.8 Other ascites; R16.1 Splenomegaly, not elsewhere classified

== ENCOUNTER → 2023-12-29 | Outpatient (CLI) | payer OTHER ==
[~2023-12-29] MED LIST changes: +LACT20EL PO; +XIFA550T PO
[2023-12-29 10:34] LABS: BASO # 0.1 10^3/uL (0.0-0.2); BASO % 0.8 % (0.0-1.0); EOS % 0.1 % (0.0-3.0); HEMATOCRIT 28.7 % (42.0-52.0); HEMOGLOBIN 8.9 g/dl (13.5-17.5); LYMPH # 0.4 10^3/uL (1.5-5.0); LYMPH % 2.5 % (24.0-44.0); MEAN CORPUSCULAR HEMOGLOBIN 29.7 pg (27.0-33.0); MEAN CORPUSCULAR VOLUME 95.7 fl (80.0-96.0); MONO # 1.3 10^3/uL (0.0-0.8); MONO % 7.9 % (2.0-8.0); NEUTROPHILS # 13.8 10^3/uL (1.5-8.5); NEUTROPHILS % 83.3 % (36.0-66.0); PLATELET COUNT, AUTOMATED 126 10^3/uL (150-450); WHITE BLOOD COUNT 16.5 10^3/uL (4.0-10.0)
[2023-12-29 11:05] LABS: ALBUMIN 1.9 G/DL (3.2-5.2); ALKALINE PHOSPHATASE 909 U/L (46-116); ALT/SGPT 35 U/L (7.0-40); AST/SGOT 99 U/L (<34); BILIRUBIN,TOTAL 3.9 MG/DL (0.3-1.2); BLOOD UREA NITROGEN 14 MG/DL (9-23); CALCIUM LEVEL 8.5 MG/DL (8.5-10.1); CARBON DIOXIDE LEVEL 20 MMOL/L (20-31); CHLORIDE LEVEL 99 MMOL/L (98-107); CREATININE FOR GFR 0.69 MG/DL (0.70-1.30); GLOMERULAR FILTRATION RATE > 60.0 (>60); GLUCOSE, FASTING 123 MG/DL (60-100); POTASSIUM SERUM 3.7 MMOL/L (3.5-5.1); SODIUM LEVEL 130 MMOL/L (136-145); TOTAL PROTEIN 4.8 G/DL (5.7-8.2)
== END ==
LOC: M ONCR 09:51
PROVIDERS: ATTEND General Practice
DX: C20 Malignant neoplasm of rectum (principal); C78.01 Secondary malignant neoplasm of right lung; C78.7 Secondary malignant neoplasm of liver and intrahepatic bile duct; Z87.891 Personal history of nicotine dependence; Z93.3 Colostomy status; Z92.21 Personal history of antineoplastic chemotherapy; Z92.3 Personal history of irradiation

== ENCOUNTER 2024-01-01 15:45 | Observation (INO) | payer OTHER ==
[~2024-01-01] VITALS: Ht 177.8 cm; Wt 85.8 kg
[2024-01-01 16:48] LABS: HEMATOCRIT 27.7 % (42.0-52.0); HEMOGLOBIN 8.7 g/dl (13.5-17.5); MEAN CORPUSCULAR HEMOGLOBIN 28.6 pg (27.0-33.0); MEAN CORPUSCULAR HGB CONC 31.4 g/dl (32.0-36.5); MEAN CORPUSCULAR VOLUME 91.1 fl (80.0-96.0); PLATELET COUNT, AUTOMATED 135 10^3/uL (150-450); RED BLOOD COUNT 3.04 10^6/uL (4.30-6.10); WHITE BLOOD COUNT 8.4 10^3/uL (4.0-10.0)
[2024-01-01 16:53] LABS: BLOOD UREA NITROGEN 16 MG/DL (9-23); CARBON DIOXIDE LEVEL 29 MMOL/L (20-31); CHLORIDE LEVEL 92 MMOL/L (98-107); CREATININE FOR GFR 1.16 MG/DL (0.70-1.30); GLOMERULAR FILTRATION RATE > 60.0 (>60); GLUCOSE, FASTING 103 MG/DL (60-100); POTASSIUM SERUM 3.5 MMOL/L (3.5-5.1); SODIUM LEVEL 131 MMOL/L (136-145)
[2024-01-01] MEDS: NS 1,000 ML IV ONE (17:21)
[2024-01-01] MEDS ORDERED: HOME MED LIST COMPLETE! XX SCH (17:55)
[2024-01-01 19:45] VITALS: BP 106/68; TEMP 98.6; O2SAT 98
[2024-01-01 20:00] VITALS: BP 112/72; TEMP 98.5; O2SAT 99
[2024-01-01 21:30] VITALS: BP 105/68; TEMP 98.5; O2SAT 98
[2024-01-01] MEDS: MORPHINE 30 MG SA TAB PO SCH (21:39)
[2024-01-01] MEDS: GABAPENTIN 300 MG CAP PO SCH (21:39)
[2024-01-01] MEDS: SODIUM CHLORIDE 0.9% INJ 10 ML SYR IV PRN (21:59)
[2024-01-01] MEDS: FUROSEMIDE 40MG/4ML VIAL IV ONE (21:59)
[2024-01-01 22:54] LABS: HEMATOCRIT 28.7 % (42.0-52.0); HEMOGLOBIN 9.3 g/dl (13.5-17.5); MEAN CORPUSCULAR HEMOGLOBIN 29.4 pg (27.0-33.0); MEAN CORPUSCULAR HGB CONC 32.4 g/dl (32.0-36.5); MEAN CORPUSCULAR VOLUME 90.8 fl (80.0-96.0); PLATELET COUNT, AUTOMATED 113 10^3/uL (150-450); RED BLOOD COUNT 3.16 10^6/uL (4.30-6.10); WHITE BLOOD COUNT 8.2 10^3/uL (4.0-10.0)
[2024-01-02 06:57] LABS: HEMATOCRIT 26.9 % (42.0-52.0); HEMOGLOBIN 8.9 g/dl (13.5-17.5); MEAN CORPUSCULAR HEMOGLOBIN 29.9 pg (27.0-33.0); MEAN CORPUSCULAR HGB CONC 33.1 g/dl (32.0-36.5); MEAN CORPUSCULAR VOLUME 90.3 fl (80.0-96.0); PLATELET COUNT, AUTOMATED 103 10^3/uL (150-450); RED BLOOD COUNT 2.98 10^6/uL (4.30-6.10); WHITE BLOOD COUNT 5.6 10^3/uL (4.0-10.0)
[2024-01-02 07:08] LABS: INR 3.74; PARTIAL THROMBOPLASTIN TIME 53.4 SECONDS (24.8-34.2); PROTHROMBIN TIME 35.6 SECONDS (12.5-14.5)
[2024-01-02 07:57] LABS: ANISOCYTOSIS 2+; ATYPICAL LYMPH 1 % (0-5); BASOPHILS 1 % (0-1); LYMPHOCYTES 8 % (16-44); MONOCYTES 16 % (0-5); NEUTROPHILS 74 % (28-66); PLATELET ESTIMATE DECREASED (NORMAL); POIKILOCYTOSIS 1+; POLYCHROMASIA 1+
[2024-01-02] MEDS: SPIRONOLACTONE 25 MG TAB PO SCH (09:00)
[2024-01-02] MEDS: FUROSEMIDE 40MG/4ML VIAL IV SCH (09:00)
[2024-01-02] MEDS: CIPROFLOXACIN 500MG TABLET PO SCH (10:05)
[2024-01-02] MEDS: VENLAFAXINE **XR** 75MG CAPSULE PO SCH (10:05)
[2024-01-02 12:30] VITALS: BP 116/65; O2SAT 100
[2024-01-02 12:54] VITALS: TEMP 97
== END 2024-01-02 12:52 | disposition left against medical advice (07) ==
LOC: M ED 15:45 → M ED INP 15:46
PROVIDERS: ADMIT Internal Medicine Nephrology; ATTEND Internal Medicine Nephrology
DX: K94.01 Colostomy hemorrhage (principal); Z53.21 Procedure and treatment not carried out due to patient leaving prior to being seen by health care provider; C18.9 Malignant neoplasm of colon, unspecified; C78.7 Secondary malignant neoplasm of liver and intrahepatic bile duct; C78.00 Secondary malignant neoplasm of unspecified lung; C79.51 Secondary malignant neoplasm of bone; D62 Acute posthemorrhagic anemia; I10 Essential (primary) hypertension; F40.01 Agoraphobia with panic disorder; Z92.21 Personal history of antineoplastic chemotherapy; G89.29 Other chronic pain; R18.8 Other ascites; K74.60 Unspecified cirrhosis of liver; Z79.899 Other long term (current) drug therapy; K76.6 Portal hypertension; I27.20 Pulmonary hypertension, unspecified
CPT/HCPCS: 36415; 36430; 80048; 85025; 85027; 85610; 85730; 86850; 86900; 86901; 86920; 93041; 93306; 96374; 96375; 99285; J1642; J1940; P9016

== ENCOUNTER → 2024-01-01 | Outpatient (CLI) | payer OTHER ==
[~2024-01-01] MED LIST changes: -LACT20EL PO; -XIFA550T PO
== END ==
LOC: M PLAIMG 07:24
PROVIDERS: ATTEND Radiology Diagnostic Radiology
DX: Z01.818 Encounter for other preprocedural examination (principal); K76.6 Portal hypertension; I27.20 Pulmonary hypertension, unspecified

== ENCOUNTER 2024-01-10 09:51 | Inpatient (IN) | payer OTHER ==
[~2024-01-10] VITALS: Ht 177.8 cm; Wt 92.6 kg
[~2024-01-10 09:51] MED LIST changes: +GABA-1172 PO; -GABA-282 PO
[2024-01-10] MEDS ORDERED: ONDANSETRON 4MG 2ML VIAL IV PRN (10:00)
[2024-01-10] MEDS ORDERED: ceFAZolin SOD 1 GM in DEXTROSE 5% (D5W) ADV/MINI-BAG 50 ML IV ONE (10:00)
[2024-01-10 10:30] LABS: HEMOGLOBIN 7.9 g/dl (13.5-17.5); MEAN CORPUSCULAR HEMOGLOBIN 30.5 pg (27.0-33.0); MEAN CORPUSCULAR HGB CONC 32.9 g/dl (32.0-36.5); MEAN CORPUSCULAR VOLUME 92.7 fl (80.0-96.0); PLATELET COUNT, AUTOMATED 107 10^3/uL (150-450); RED BLOOD COUNT 2.59 10^6/uL (4.30-6.10); WHITE BLOOD COUNT 14.7 10^3/uL (4.0-10.0)
[2024-01-10 10:45] LABS: INR 1.33
[2024-01-10 11:38] LABS: ALBUMIN 1.7 G/DL (3.2-5.2); ALKALINE PHOSPHATASE 2125 U/L (46-116); ALT/SGPT 77 U/L (7.0-40); AST/SGOT 141 U/L (<34); BILIRUBIN,TOTAL 8.9 MG/DL (0.3-1.2); BLOOD UREA NITROGEN 30 MG/DL (9-23); CALCIUM LEVEL 8.2 MG/DL (8.5-10.1); CARBON DIOXIDE LEVEL 29 MMOL/L (20-31); CHLORIDE LEVEL 100 MMOL/L (98-107); CREATININE FOR GFR 1.27 MG/DL (0.70-1.30); GLOMERULAR FILTRATION RATE > 60.0 (>60); GLUCOSE, FASTING 94 MG/DL (60-100); POTASSIUM SERUM 3.2 MMOL/L (3.5-5.1); SODIUM LEVEL 137 MMOL/L (136-145); TOTAL PROTEIN 5.3 G/DL (5.7-8.2)
[2024-01-10] MEDS ORDERED: ceFAZolin 2 GM/D5W 50 ML IV BAG As Ordered ONE (11:49)
[2024-01-10] MEDS ORDERED: diphenhydrAMINE 50MG/ML VIAL As Ordered ONE (11:49)
[2024-01-10] MEDS ORDERED: fentaNYL 100 MCG/2 ML INJECTION As Ordered ONE (11:49)
[2024-01-10] MEDS ORDERED: MIDAZOLAM INJ 2MG/2ML VIAL As Ordered ONE (11:50)
[2024-01-10] MEDS ORDERED: ISOVUE-300 61% 100ML VIAL As Ordered ONE (11:50)
[2024-01-10] MEDS ORDERED: LIDOCAINE 1% MDV 20ML VIAL As Ordered ONE (11:50)
[2024-01-10] MEDS: NS 1,000 ML IV SCH (11:54)
[2024-01-10] MEDS: ceFAZolin SOD 2 GM in IV 1 EA IV ONE (11:55)
[2024-01-10] MEDS: metroNIDAZOLE 500 MG in IV 1 EA IV ONE (12:36)
[2024-01-10] MEDS ORDERED: EMBOSPHERE MICROSPHERES As Ordered ONE (13:47)
[2024-01-10] MEDS: dexAMETHasone 20MG/5ML VIAL IV ONE (13:53)
[2024-01-10] MEDS ORDERED: ONDANSETRON 4MG 2ML VIAL As Ordered ONE (13:55)
[2024-01-10] MEDS: diphenhydrAMINE 50MG/ML VIAL IV ONE (13:55)
[2024-01-10] MEDS ORDERED: NS 1,000 ML IV SCH ×2 (15:15→15:31)
[2024-01-10] MEDS ORDERED: MOM 30ML SUSPENSION UDC PO PRN (15:30)
[2024-01-10] MEDS: LACTULOSE 20GM/30ML SYRUP UDC PO SCH (16:55)
[2024-01-10 17:04] VITALS: BP 120/69; TEMP 97.7; O2SAT 99
[2024-01-10] MEDS ORDERED: TORS20TA2 PO (17:47)
[2024-01-10] MEDS ORDERED: HOME MED LIST COMPLETE! XX SCH (17:50)
[2024-01-10] MEDS: rifAXIMin 550 MG TAB (XIFAXAN) PO SCH (20:13)
[2024-01-10] MEDS: DOCUSATE SODIUM 100MG CAPSULE PO SCH (20:13)
[2024-01-10 20:16] VITALS: BP 102/63; TEMP 98.5; O2SAT 96
[2024-01-11] VITALS (26 sets, daily range): BP systolic 97–125; BP diastolic 51–84; TEMP 97.6–99.5; O2SAT 86–100
[2024-01-11 07:18] LABS: MEAN CORPUSCULAR HEMOGLOBIN 30.5 pg (27.0-33.0); MEAN CORPUSCULAR HGB CONC 32.8 g/dl (32.0-36.5); MEAN CORPUSCULAR VOLUME 92.9 fl (80.0-96.0); RED BLOOD COUNT 1.97 10^6/uL (4.30-6.10); WHITE BLOOD COUNT 7.7 10^3/uL (4.0-10.0)
[2024-01-11 08:07] LABS: ALBUMIN 1.4 G/DL (3.2-5.2); ALKALINE PHOSPHATASE 1493 U/L (46-116); ALT/SGPT 119 U/L (7.0-40); AST/SGOT 540 U/L (<34); BILIRUBIN,DIRECT 4.6 MG/DL (<0.4); BILIRUBIN,TOTAL 6.1 MG/DL (0.3-1.2); BLOOD UREA NITROGEN 33 MG/DL (9-23); CALCIUM LEVEL 8.2 MG/DL (8.5-10.1); CARBON DIOXIDE LEVEL 28 MMOL/L (20-31); CHLORIDE LEVEL 101 MMOL/L (98-107); CREATININE FOR GFR 1.22 MG/DL (0.70-1.30); GLOMERULAR FILTRATION RATE > 60.0 (>60); GLUCOSE, FASTING 139 MG/DL (60-100); POTASSIUM SERUM 3.4 MMOL/L (3.5-5.1); SODIUM LEVEL 135 MMOL/L (136-145); TOTAL PROTEIN 4.6 G/DL (5.7-8.2)
[2024-01-11 08:10] LABS: PLATELET COUNT, AUTOMATED 63 10^3/uL (150-450)
[2024-01-11 08:11] LABS: HEMATOCRIT 18.3 % (42.0-52.0)
[2024-01-11] MEDS ORDERED: CIPROFLOXACIN 500MG TABLET PO SCH (09:00)
[2024-01-11] MEDS: MORPHINE 30 MG SA TAB PO SCH (11:55)
[2024-01-11] MEDS: VENLAFAXINE **XR** 75MG CAPSULE PO SCH (11:57)
[2024-01-11] MEDS: PANTOPRAZOLE 40MG VIAL IV ONE (11:58)
[2024-01-11] MEDS: OCTREOTIDE ACETATE 100MCG/ML VIAL **IV ADMINISTRATION ONLY IV ONE (11:58)
[2024-01-11] MEDS: OCTREOTIDE ACETATE 1,200 MCG in NS 238.8 ML IV SCH (11:58)
[2024-01-11] MEDS: cefTRIAXone SOD 1 GM in DEXTROSE 5% (D5W) ADV/MINI-BAG 50 ML IV SCH (12:02)
[2024-01-11 12:47] LABS: MEAN CORPUSCULAR HEMOGLOBIN 30.4 pg (27.0-33.0); MEAN CORPUSCULAR HGB CONC 32.6 g/dl (32.0-36.5); MEAN CORPUSCULAR VOLUME 93.2 fl (80.0-96.0); RED BLOOD COUNT 2.07 10^6/uL (4.30-6.10); WHITE BLOOD COUNT 10.2 10^3/uL (4.0-10.0)
[2024-01-11 13:00] LABS: HEMATOCRIT 19.3 % (42.0-52.0); HEMOGLOBIN 6.3 g/dl (13.5-17.5); PLATELET COUNT, AUTOMATED 78 10^3/uL (150-450)
[2024-01-11] MEDS ORDERED: MORPHINE 2 MG/ML 1ML VIAL IV ONE (16:05)
[2024-01-11] MEDS: fentaNYL 100 MCG/2 ML INJECTION IV ONE ×3 (16:15→16:47)
[2024-01-11 16:25] LABS: VENOUS BASE EXCESS 2.9 (-2.0-2.0); VENOUS HCO3 25.6 MMOL/L (23.0-27.0); VENOUS O2 SATURATION 78.4 % (60.0-80.0); VENOUS PARTIAL PRESSURE CO2 32.4 mmHg (38.0-50.0); VENOUS PARTIAL PRESSURE O2 38.2 mmHg (30.0-50.0); VENOUS PH 7.516 UNITS (7.330-7.430); VENOUS STANDARD HCO3 26.7 MMOL/L; VENOUS TOTAL CO2 26.6 MMOL/L (24.0-28.0)
[2024-01-11 16:29] LABS: HEMATOCRIT 26.3 % (42.0-52.0); MEAN CORPUSCULAR HEMOGLOBIN 30.4 pg (27.0-33.0); MEAN CORPUSCULAR HGB CONC 34.2 g/dl (32.0-36.5); MEAN CORPUSCULAR VOLUME 88.9 fl (80.0-96.0); RED BLOOD COUNT 2.96 10^6/uL (4.30-6.10); WHITE BLOOD COUNT 12.4 10^3/uL (4.0-10.0)
[2024-01-11] MEDS ORDERED: LIDOCAINE VISCOUS 2% SOLN 15ML UDC PO ONE (16:30)
[2024-01-11] MEDS: GABAPENTIN 300 MG CAP PO SCH (16:30)
[2024-01-11 16:31] LABS: PLATELET COUNT, AUTOMATED 89 10^3/uL (150-450)
[2024-01-11 16:41] LABS: INR 1.6; PARTIAL THROMBOPLASTIN TIME 32.2 SECONDS (24.8-34.2); PROTHROMBIN TIME 18.5 SECONDS (12.5-14.5)
[2024-01-11] MEDS: HYOSCYAMINE SULFATE 0.125 MG SUBL TABLET SL ONE (16:45)
[2024-01-11] MEDS: MAALOX 30 ML SUSP *UDC PO ONE (16:46)
[2024-01-11 17:16] LABS: ALBUMIN 1.6 G/DL (3.2-5.2); ALKALINE PHOSPHATASE 2060 U/L (46-116); ALT/SGPT 151 U/L (7.0-40); AST/SGOT 664 U/L (<34); BILIRUBIN,TOTAL 7.4 MG/DL (0.3-1.2); BLOOD UREA NITROGEN 33 MG/DL (9-23); CALCIUM LEVEL 8.2 MG/DL (8.5-10.1); CARBON DIOXIDE LEVEL 26 MMOL/L (20-31); CHLORIDE LEVEL 99 MMOL/L (98-107); CREATININE FOR GFR 1.13 MG/DL (0.70-1.30); GLOMERULAR FILTRATION RATE > 60.0 (>60); GLUCOSE, FASTING 126 MG/DL (60-100); POTASSIUM SERUM 3.9 MMOL/L (3.5-5.1); SODIUM LEVEL 134 MMOL/L (136-145); TOTAL PROTEIN 4.9 G/DL (5.7-8.2)
[2024-01-11] MEDS: LIDOCAINE VISCOUS 2% SOLN 15ML UDC PO STA (18:28)
[2024-01-11] MEDS ORDERED: LIDOCAINE 2% 100MG/5ML SDV (FOR ANES.) As Ordered ONE (19:34)
[2024-01-11] MEDS ORDERED: propofoL 200 MG/20 ML VIAL As Ordered ONE (19:34)
[2024-01-12] VITALS (10 sets, daily range): BP systolic 105–124; BP diastolic 55–80; TEMP 97.2–98; O2SAT 68–100
[2024-01-12 00:18] LABS: HEMATOCRIT 24.1 % (42.0-52.0); HEMOGLOBIN 8.1 g/dl (13.5-17.5); MEAN CORPUSCULAR HEMOGLOBIN 30.6 pg (27.0-33.0); MEAN CORPUSCULAR HGB CONC 33.6 g/dl (32.0-36.5); MEAN CORPUSCULAR VOLUME 90.9 fl (80.0-96.0); RED BLOOD COUNT 2.65 10^6/uL (4.30-6.10); WHITE BLOOD COUNT 10.6 10^3/uL (4.0-10.0)
[2024-01-12 00:21] LABS: PLATELET COUNT, AUTOMATED 76 10^3/uL (150-450)
[2024-01-12 04:27] LABS: HEMATOCRIT 23.7 % (42.0-52.0); HEMOGLOBIN 7.9 g/dl (13.5-17.5); MEAN CORPUSCULAR HEMOGLOBIN 30.2 pg (27.0-33.0); MEAN CORPUSCULAR HGB CONC 33.3 g/dl (32.0-36.5); MEAN CORPUSCULAR VOLUME 90.5 fl (80.0-96.0); PLATELET COUNT, AUTOMATED 73 10^3/uL (150-450); RED BLOOD COUNT 2.62 10^6/uL (4.30-6.10); WHITE BLOOD COUNT 9.8 10^3/uL (4.0-10.0)
[2024-01-12 05:09] LABS: ALBUMIN 1.9 G/DL (3.2-5.2); ALKALINE PHOSPHATASE 1607 U/L (46-116); ALT/SGPT 127 U/L (7.0-40); AST/SGOT 388 U/L (<34); BILIRUBIN,DIRECT 4.5 MG/DL (<0.4); BILIRUBIN,TOTAL 6.1 MG/DL (0.3-1.2); BLOOD UREA NITROGEN 29 MG/DL (9-23); CALCIUM LEVEL 8.3 MG/DL (8.5-10.1); CARBON DIOXIDE LEVEL 27 MMOL/L (20-31); CHLORIDE LEVEL 103 MMOL/L (98-107); CREATININE FOR GFR 1.05 MG/DL (0.70-1.30); GLOMERULAR FILTRATION RATE > 60.0 (>60); GLUCOSE, FASTING 138 MG/DL (60-100); POTASSIUM SERUM 3.6 MMOL/L (3.5-5.1); SODIUM LEVEL 136 MMOL/L (136-145); TOTAL PROTEIN 4.9 G/DL (5.7-8.2)
[2024-01-12] MEDS: PANTOPRAZOLE 40MG VIAL IV SCH (11:31)
[2024-01-12 11:42] LABS: HEMATOCRIT 24.8 % (42.0-52.0); HEMOGLOBIN 8.3 g/dl (13.5-17.5); MEAN CORPUSCULAR HEMOGLOBIN 30.4 pg (27.0-33.0); MEAN CORPUSCULAR HGB CONC 33.5 g/dl (32.0-36.5); MEAN CORPUSCULAR VOLUME 90.8 fl (80.0-96.0); RED BLOOD COUNT 2.73 10^6/uL (4.30-6.10); WHITE BLOOD COUNT 10.3 10^3/uL (4.0-10.0)
[2024-01-12 12:01] LABS: PLATELET COUNT, AUTOMATED 69 10^3/uL (150-450)
[2024-01-12] MEDS: SODIUM CHLORIDE 0.9% INJ 10 ML SYR IV PRN (12:33)
[2024-01-12 17:43] LABS: APPEARANCE, BODY FLUID TURBID (CLEAR); ASCITES FL COLOR YELLOW (COLORLESS); SOURCE, BODY FLUID ASCITES
[2024-01-12 18:08] LABS: SOURCE, BODY FLUID ALBUMIN ASCITES
[2024-01-12 18:13] LABS: SOURCE, BODY FLUID GLUCOSE ASCITES
[2024-01-12 18:17] LABS: SOURCE, BODY FLUID TOT PROTEIN ASCITES; TOTAL PROTEIN, BODY FLUID 2.1 G/DL (NOT ESTABLISHED)
[2024-01-12] MEDS: PIPERACILLIN/TAZOBACTAM SOD 4.5 GM in DEXTROSE 5% (D5W) ADV/MINI-BAG 50 ML IV ONE (18:23)
[2024-01-13] VITALS (14 sets, daily range): BP systolic 92–113; BP diastolic 56–70; TEMP 97.2–98.1; O2SAT 96–100
[2024-01-13] MEDS: PIPERACILLIN/TAZOBACTAM SOD 3.375 GM in DEXTROSE 5% (D5W) ADV/MINI-BAG 50 ML IV SCH (00:33)
[2024-01-13 03:02] LABS: HEMATOCRIT 22.3 % (42.0-52.0); HEMOGLOBIN 7.3 g/dl (13.5-17.5); MEAN CORPUSCULAR HEMOGLOBIN 30.3 pg (27.0-33.0); MEAN CORPUSCULAR HGB CONC 32.7 g/dl (32.0-36.5); MEAN CORPUSCULAR VOLUME 92.5 fl (80.0-96.0); RED BLOOD COUNT 2.41 10^6/uL (4.30-6.10); WHITE BLOOD COUNT 8.3 10^3/uL (4.0-10.0)
[2024-01-13 03:06] LABS: PLATELET COUNT, AUTOMATED 52 10^3/uL (150-450)
[2024-01-13 06:27] LABS: HEMATOCRIT 22.3 % (42.0-52.0); HEMOGLOBIN 7.3 g/dl (13.5-17.5); MEAN CORPUSCULAR HEMOGLOBIN 30.8 pg (27.0-33.0); MEAN CORPUSCULAR HGB CONC 32.7 g/dl (32.0-36.5); MEAN CORPUSCULAR VOLUME 94.1 fl (80.0-96.0); RED BLOOD COUNT 2.37 10^6/uL (4.30-6.10); WHITE BLOOD COUNT 7.8 10^3/uL (4.0-10.0)
[2024-01-13 06:29] LABS: PLATELET COUNT, AUTOMATED 50 10^3/uL (150-450)
[2024-01-13 07:42] LABS: ALBUMIN 2.1 G/DL (3.2-5.2); ALKALINE PHOSPHATASE 1247 U/L (46-116); ALT/SGPT 94 U/L (7.0-40); AST/SGOT 192 U/L (<34); BILIRUBIN,DIRECT 4.8 MG/DL (<0.4); BILIRUBIN,TOTAL 6.3 MG/DL (0.3-1.2); BLOOD UREA NITROGEN 23 MG/DL (9-23); CALCIUM LEVEL 7.8 MG/DL (8.5-10.1); CARBON DIOXIDE LEVEL 26 MMOL/L (20-31); CHLORIDE LEVEL 103 MMOL/L (98-107); CREATININE FOR GFR 0.89 MG/DL (0.70-1.30); GLOMERULAR FILTRATION RATE > 60.0 (>60); GLUCOSE, FASTING 120 MG/DL (60-100); POTASSIUM SERUM 3.2 MMOL/L (3.5-5.1); SODIUM LEVEL 135 MMOL/L (136-145); TOTAL PROTEIN 4.7 G/DL (5.7-8.2)
[2024-01-13] MEDS ORDERED: CIPROFLOXACIN 500MG TABLET PO SCH (09:00)
[2024-01-13] MEDS: POTASSIUM CHLORIDE 10MEQ SR TABLET PO ONE (09:09)
[2024-01-13] MEDS: MIDODRINE 5 MG TAB PO SCH (09:09)
[2024-01-13] MEDS: SODIUM CHLORIDE 0.9% INJ 10 ML SYR IV SCH (09:12)
[2024-01-13] MEDS ORDERED: DIAPER RELIEF PASTE (DESITIN) 60GM TOP PRN (09:30)
[2024-01-13 12:14] LABS: HEMATOCRIT 21.8 % (42.0-52.0); HEMOGLOBIN 7.1 g/dl (13.5-17.5); MEAN CORPUSCULAR HEMOGLOBIN 30.9 pg (27.0-33.0); MEAN CORPUSCULAR HGB CONC 32.6 g/dl (32.0-36.5); MEAN CORPUSCULAR VOLUME 94.8 fl (80.0-96.0); WHITE BLOOD COUNT 9.4 10^3/uL (4.0-10.0)
[2024-01-13 12:31] LABS: PLATELET COUNT, AUTOMATED 47 10^3/uL (150-450)
[2024-01-13 15:31] LABS: LDH, BODY FLUID > 750 U/L (NOT ESTABLISHED); SOURCE, BODY FLUID LDH ASCITES
[2024-01-13] MEDS: CIPROFLOXACIN 500MG TABLET PO ONE (21:10)
[2024-01-14] VITALS (8 sets, daily range): BP systolic 80–106; BP diastolic 43–66; TEMP 97.1–98.6; O2SAT 97–99
[2024-01-14 05:14] LABS: BASO % 0.1 % (0.0-1.0); EOS % 0.3 % (0.0-3.0); HEMATOCRIT 25.9 % (42.0-52.0); HEMOGLOBIN 8.3 g/dl (13.5-17.5); LYMPH # 0.5 10^3/uL (1.5-5.0); LYMPH % 4.5 % (24.0-44.0); MEAN CORPUSCULAR HEMOGLOBIN 30.7 pg (27.0-33.0); MEAN CORPUSCULAR VOLUME 95.9 fl (80.0-96.0); MONO % 9.1 % (2.0-8.0); NEUTROPHILS # 9.4 10^3/uL (1.5-8.5); NEUTROPHILS % 85.1 % (36.0-66.0); WHITE BLOOD COUNT 11.1 10^3/uL (4.0-10.0)
[2024-01-14 05:21] LABS: PLATELET COUNT, AUTOMATED 49 10^3/uL (150-450)
[2024-01-14 05:31] LABS: INR 1.62; PROTHROMBIN TIME 18.7 SECONDS (12.5-14.5)
[2024-01-14 07:22] LABS: ALBUMIN 2.1 G/DL (3.2-5.2); ALKALINE PHOSPHATASE 1328 U/L (46-116); ALT/SGPT 84 U/L (7.0-40); AST/SGOT 127 U/L (<34); BILIRUBIN,DIRECT 5.3 MG/DL (<0.4); BILIRUBIN,TOTAL 7.4 MG/DL (0.3-1.2); BLOOD UREA NITROGEN 15 MG/DL (9-23); CALCIUM LEVEL 7.6 MG/DL (8.5-10.1); CARBON DIOXIDE LEVEL 28 MMOL/L (20-31); CHLORIDE LEVEL 103 MMOL/L (98-107); CREATININE FOR GFR 0.92 MG/DL (0.70-1.30); GLOMERULAR FILTRATION RATE > 60.0 (>60); GLUCOSE, FASTING 104 MG/DL (60-100); POTASSIUM SERUM 3.3 MMOL/L (3.5-5.1); SODIUM LEVEL 137 MMOL/L (136-145); TOTAL PROTEIN 4.8 G/DL (5.7-8.2)
[2024-01-14] MEDS: CIPROFLOXACIN 500MG TABLET PO SCH (08:50)
[2024-01-14 14:09] LABS: HEMATOCRIT 25.2 % (42.0-52.0); HEMOGLOBIN 7.9 g/dl (13.5-17.5)
[2024-01-14 21:54] LABS: HEMATOCRIT 24.1 % (42.0-52.0); HEMOGLOBIN 7.5 g/dl (13.5-17.5)
[2024-01-15] VITALS (22 sets, daily range): BP systolic 95–114; BP diastolic 57–73; TEMP 97.5–98.7; O2SAT 91–100
[2024-01-15 04:31] LABS: HEMATOCRIT 22.4 % (42.0-52.0); HEMOGLOBIN 7.1 g/dl (13.5-17.5); MEAN CORPUSCULAR HEMOGLOBIN 30.6 pg (27.0-33.0); MEAN CORPUSCULAR HGB CONC 31.7 g/dl (32.0-36.5); MEAN CORPUSCULAR VOLUME 96.6 fl (80.0-96.0); RED BLOOD COUNT 2.32 10^6/uL (4.30-6.10); WHITE BLOOD COUNT 8.9 10^3/uL (4.0-10.0)
[2024-01-15 04:46] LABS: PLATELET COUNT, AUTOMATED 43 10^3/uL (150-450)
[2024-01-15 06:28] LABS: ALBUMIN 1.7 G/DL (3.2-5.2); ALKALINE PHOSPHATASE 1237 U/L (46-116); ALT/SGPT 63 U/L (7.0-40); AST/SGOT 85 U/L (<34); BILIRUBIN,DIRECT 5.9 MG/DL (<0.4); BILIRUBIN,TOTAL 7.6 MG/DL (0.3-1.2); BLOOD UREA NITROGEN 13 MG/DL (9-23); CALCIUM LEVEL 7.4 MG/DL (8.5-10.1); CARBON DIOXIDE LEVEL 26 MMOL/L (20-31); CHLORIDE LEVEL 103 MMOL/L (98-107); CREATININE FOR GFR 0.73 MG/DL (0.70-1.30); GLOMERULAR FILTRATION RATE > 60.0 (>60); GLUCOSE, FASTING 131 MG/DL (60-100); POTASSIUM SERUM 3.4 MMOL/L (3.5-5.1); SODIUM LEVEL 135 MMOL/L (136-145); TOTAL PROTEIN 4.4 G/DL (5.7-8.2)
[2024-01-15] MEDS: PHYTONADIONE 10MG/ML 1ML INJECTION SC ONE (08:03)
[2024-01-15] MEDS: KCL 10MEQ/100ML SWI (KRUN) 10 MEQ in IV 1 EA IV SCH (08:03)
[2024-01-15] MEDS ORDERED: ATROPINE SULF 1MG/10ML SYRINGE As Ordered ONE (13:58)
[2024-01-15] MEDS ORDERED: ROCURONIUM BROMIDE 50MG/5ML VIAL As Ordered ONE (13:58)
[2024-01-15] MEDS: NS 500 ML IV SCH (16:15)
[2024-01-15 18:45] LABS: HEMATOCRIT 28.5 % (42.0-52.0)
[2024-01-15 18:46] LABS: HEMOGLOBIN 9.3 g/dl (13.5-17.5)
[2024-01-16] VITALS (9 sets, daily range): BP systolic 96–110; BP diastolic 58–64; TEMP 97.2–97.8; O2SAT 95–98
[2024-01-16 05:50] LABS: BASO % 0.1 % (0.0-1.0); EOS # 0.1 10^3/uL (0.0-0.5); EOS % 0.6 % (0.0-3.0); HEMATOCRIT 24.8 % (42.0-52.0); LYMPH # 0.5 10^3/uL (1.5-5.0); LYMPH % 5.2 % (24.0-44.0); MEAN CORPUSCULAR HEMOGLOBIN 30.5 pg (27.0-33.0); MEAN CORPUSCULAR HGB CONC 32.3 g/dl (32.0-36.5); MEAN CORPUSCULAR VOLUME 94.7 fl (80.0-96.0); MONO % 11.7 % (2.0-8.0); PLATELET COUNT, AUTOMATED 38 10^3/uL (150-450); RED BLOOD COUNT 2.62 10^6/uL (4.30-6.10); WHITE BLOOD COUNT 8.6 10^3/uL (4.0-10.0)
[2024-01-16 06:56] LABS: BLOOD UREA NITROGEN 12 MG/DL (9-23); CALCIUM LEVEL 7.6 MG/DL (8.5-10.1); CARBON DIOXIDE LEVEL 28 MMOL/L (20-31); CHLORIDE LEVEL 105 MMOL/L (98-107); CREATININE FOR GFR 0.63 MG/DL (0.70-1.30); GLOMERULAR FILTRATION RATE > 60.0 (>60); GLUCOSE, FASTING 97 MG/DL (60-100); POTASSIUM SERUM 3.6 MMOL/L (3.5-5.1); SODIUM LEVEL 137 MMOL/L (136-145)
[2024-01-16 08:11] LABS: ALBUMIN 1.7 G/DL (3.2-5.2); ALKALINE PHOSPHATASE 1227 U/L (46-116); ALT/SGPT 53 U/L (7.0-40); AST/SGOT 82 U/L (<34); BILIRUBIN,DIRECT 7.8 MG/DL (<0.4); BILIRUBIN,TOTAL 10.4 MG/DL (0.3-1.2); TOTAL PROTEIN 4.4 G/DL (5.7-8.2)
[2024-01-16] MEDS ORDERED: LACT20EL PO (11:25)
[2024-01-16] MEDS ORDERED: COLA100C5 PO (11:25)
[2024-01-16] MEDS ORDERED: GABA-1172 PO (11:25)
[2024-01-16] MEDS ORDERED: XIFA550T PO (11:25)
[2024-01-16 12:13] LABS: HEMATOCRIT 26.1 % (42.0-52.0); HEMOGLOBIN 8.3 g/dl (13.5-17.5)
[2024-01-17] MEDS ORDERED: MORP30TASA PO (08:56)
[2024-01-23] MEDS ORDERED: MORP1SOL5 PO (08:54)
[2024-01-23] MEDS ORDERED: LORA2CON5 PO (08:56)
[2024-01-23] MEDS ORDERED: TRAN1DIS4 TOP (08:57)
== END 2024-01-16 14:50 | disposition home or self-care (01) | DRG 374 ==
LOC: M IRPRO 09:51 → M MS4PR 09:52 → OBSVTOIN 01-11 08:58 → M ICU 01-11 09:46
PROVIDERS: ADMIT Student in an Organized Health Care Education/Training Program; ATTEND Student in an Organized Health Care Education/Training Program
PROC: 04H333Z Insertion of Infusion Device into Hepatic Artery, Percutaneous Approach (ICD-10-PCS; 2024-01-10)
PROC: 30233N1 Transfusion of Nonautologous Red Blood Cells into Peripheral Vein, Percutaneous Approach (ICD-10-PCS; 2024-01-11)
PROC: 0DJ08ZZ Inspection of Upper Intestinal Tract, Via Natural or Artificial Opening Endoscopic (ICD-10-PCS; principal; 2024-01-11 19:00)
PROC: 30233K1 Transfusion of Nonautologous Frozen Plasma into Peripheral Vein, Percutaneous Approach (ICD-10-PCS; 2024-01-15)
PROC: 0W9G3ZZ Drainage of Peritoneal Cavity, Percutaneous Approach (ICD-10-PCS; 2024-01-15)
DX: C18.9 Malignant neoplasm of colon, unspecified (principal); K65.2 Spontaneous bacterial peritonitis; K76.7 Hepatorenal syndrome; C78.7 Secondary malignant neoplasm of liver and intrahepatic bile duct; E87.1 Hypo-osmolality and hyponatremia; G93.40 Encephalopathy, unspecified; I85.10 Secondary esophageal varices without bleeding; K76.6 Portal hypertension; D62 Acute posthemorrhagic anemia; N17.9 Acute kidney failure, unspecified; Z87.891 Personal history of nicotine dependence; Z92.21 Personal history of antineoplastic chemotherapy; E87.6 Hypokalemia; K74.60 Unspecified cirrhosis of liver; D50.9 Iron deficiency anemia, unspecified; Z79.899 Other long term (current) drug therapy; G89.3 Neoplasm related pain (acute) (chronic); F32.A Depression, unspecified

== ENCOUNTER 2024-01-18 15:08 | Emergency (ER) | payer OTHER ==
[~2024-01-18] VITALS: Ht 177.8 cm; Wt 91.2 kg
[~2024-01-18 15:08] MED LIST changes: +LACT20EL PO; +XIFA550T PO
[2024-01-18 19:15] VITALS: BP 121/79; TEMP 98.5; O2SAT 98
[2024-01-18] MEDS: FUROSEMIDE 40MG/4ML VIAL IV ONE (19:38)
[2024-01-23] MEDS ORDERED: MORP1SOL5 PO (08:54)
[2024-01-23] MEDS ORDERED: LORA2CON5 PO (08:56)
[2024-01-23] MEDS ORDERED: TRAN1DIS4 TOP (08:57)
== END 2024-01-18 20:02 | disposition home or self-care (01) ==
LOC: M ED 15:08
DX: N49.2 Inflammatory disorders of scrotum (principal); C18.9 Malignant neoplasm of colon, unspecified; C78.7 Secondary malignant neoplasm of liver and intrahepatic bile duct; C78.00 Secondary malignant neoplasm of unspecified lung; F41.0 Panic disorder [episodic paroxysmal anxiety]; F32.A Depression, unspecified; Z91.02 Food additives allergy status
CPT/HCPCS: 76870; 81001; 93976; 96374; 99284; J1940

== ENCOUNTER → 2024-01-23 | Outpatient (CLI) | payer OTHER ==
[~2024-01-23] MED LIST changes: +LORA2CON5 PO; +MORP1SOL5 PO; +TRAN1DIS4 TOP
== END ==
LOC: M ONCR 08:19
PROVIDERS: ATTEND General Practice
DX: C78.7 Secondary malignant neoplasm of liver and intrahepatic bile duct (principal); K72.90 Hepatic failure, unspecified without coma; R60.1 Generalized edema; R18.8 Other ascites